=== PATIENT | female | born 1950 | race Caucasian/White ===

== ENCOUNTER → 2018-01-18 09:46 | Outpatient (POV) | payer MEDICARE, MEDICAID, SELFPAY | PROVIDERS: Family Provider Family Medicine; Visit Provider Physician Assistant | DX: Z00.00 Encounter for general adult medical examination without abnormal findings (principal) ==

== ENCOUNTER → 2019-09-01 10:08 | Outpatient (CLI) | payer MEDICARE, OTHER, SELFPAY ==
--- NOTE | 2019-09-01 10:21 | XR_ITS ---
PROCEDURE: XR KNEE LT 3V CLINICAL INDICATION: S/P FALL, KNEE PAIN Posttraumatic pain COMPARISON: No exams were available for comparison FINDINGS: No previous exams available for comparison. There has been a prior total knee replacement with good alignment. There is calcification along the dorsal aspect of the femoral prosthesis. This is of unknown chronicity as there are no old exams available for review. This projects over the intercondylar region on the AP view. No acute fracture or dislocation. IMPRESSION: Status post total knee replacement with good alignment with ossification along the femoral prosthesis at the intercondylar region posteriorly. No acute fracture Dictated by: Finesse Fisher MD 09/01/2019 16:45 Electronically signed by Finesse Fisher MD in [place] 09/01/2019 16:45
--- NOTE | 2019-09-01 10:21 | XR_ITS ---
PROCEDURE: XR HAND RT MIN 3V CLINICAL INDICATION: S/P FALL RT HAND PAIN COMPARISON: No exams were available for comparison FINDINGS: Osteoarthritic changes are present at the 1st interphalangeal joint, 1st metacarpal-carpal joint, PIP and DIP joints of digits 2 through 5 and at the metacarpophalangeal joint of digit 1 and 2. No acute fracture or dislocation is evident. Ring artifact noted at the 5th finger proximal phalanx. IMPRESSION: Osteoarthritic change, no acute finding Dictated by: Finesse Fisher MD 09/01/2019 16:43 Electronically signed by Finesse Fisher MD in [place] 09/01/2019 16:43
== END ==
PROVIDERS: PCP Family Medicine; Visit Provider Nurse Practitioner
DX: M79.641 Pain in right hand (principal); M25.562 Pain in left knee
CPT/HCPCS: 73130; 73562

== ENCOUNTER → 2020-12-18 07:37 | Outpatient (CLI) | payer MEDICARE, OTHER, SELFPAY ==
--- NOTE | 2020-12-18 07:50 | ECG_ITS ---
APPROVED REPORT Exam: Resting ECG HR:78 bpm ECG Measurements Heart Rate 78 AXES QRSd 90 QRS 80 QT 350 T -17 QTc 399 Conclusion Atrial fibrillation Nonspecific T wave abnormality -questionable electrolyte effect Abnormal ECG Electronically signed by : Zeeshan Sellers, 12/18/2020 17:09:24
== END ==
PROVIDERS: PCP Nurse Practitioner; Visit Provider Nurse Practitioner
DX: I49.9 Cardiac arrhythmia, unspecified (principal)
CPT/HCPCS: 93005

== ENCOUNTER → 2020-12-24 07:46 | Outpatient (CLI) | payer MEDICARE, OTHER, SELFPAY ==
--- NOTE | 2020-12-24 | CA_ITS ---
APPROVED REPORT EXAM: Comprehensive 2D, Doppler, and color-flow Echocardiogram Surgical Technology Instructor: Louise Simms RT(R) Ht: 5 ft 3 in Wt: 206lbs BSA: 1.96 BP: 120/70 mmHg Indications: Chest Pain, Murmur, Shortness of Breath, Atrial Fibrillation, Obesity, Hypertension/HDD 2D Dimensions LVOT 1.80 cm (M/F) 1.5-2.5 LVEF (Fried's) 55.60 % LV Volume 80.20 mL LA Volume 67.30 mL LA Volume Index 34.30 mL/m2 (M/F) 16-34 M-Mode Dimensions RVDd 2.57 cm (0.9-2.6) LA Diam 4.81 cm (1.9-4.0) LVDd 4.01 cm (3.5-5.7) Ao Diam 2.62 cm (2.0-3.7) LVDs 2.57 cm (3.5-5.7) IVSd 0.80 cm (0.6-1.1) PWd 0.92 cm (0.6-1.1) EF (Teich) 66.10% FS 35.90% EDV (Teich) 70.40 mL ESV (Teich) 23.90 mL Tricuspid Valve TR P. Velocity 268.00 cm/s RAP Estimate 15.00 mmHg RVSP 43.70 mmHg Left Ventricle Technically difficult study because of the patient factors and poor acoustic windows. Left atrium is mildly enlarged, left ventricle is normal size, mild concentric left ventricular hypertrophy, visually estimated ejection fraction 50% with no regional wall motion abnormality, diastolic parameters are inconclusive. Right Ventricle Right atrium and right ventricle are mildly enlarged with normal contractility. Aortic Valve Aortic valve is minimally thickened and calcified without aortic stenosis or aortic insufficiency. Mitral Valve Mitral valve leaflets are minimally thickened, there is mild mitral regurgitation. Tricuspid Valve Tricuspid valve grossly normal, there is mild tricuspid regurgitation, calculated right ventricular systolic pressure is 46 mmHg. Pulmonic Valve Pulmonic valve is poorly visualized. Great Vessels Aortic root is normal size. Inferior vena cava is normal size with normal inspiratory collapse. Pericardium No significant pericardial effusion noted. Conclusion 1. Technically difficult study because of the patient factors and poor acoustic windows. Biatrial enlargement, normal left ventricular size, mild concentric left ventricular hypertrophy, visually estimated ejection fraction 50% with no regional wall motion abnormality, diastolic parameters are inconclusive. 2. Mildly enlarged right ventricle with normal contractility. 3. Thickened and calcified aortic valve without aortic stenosis or aortic insufficiency. 4. Mild mitral and tricuspid regurgitation. Calculated right ventricular systolic pressure is 46 mmHg. 5. No significant pericardial effusion noted. Electronically signed by : Kashif Chavez, 12/25/2020 05:29:20
== END ==
PROVIDERS: PCP Family Medicine; Visit Provider Nurse Practitioner
DX: I48.91 Unspecified atrial fibrillation (principal); R07.89 Other chest pain; R06.09 Other forms of dyspnea
CPT/HCPCS: 93306

== ENCOUNTER → 2021-01-01 14:23 | Outpatient (CLI) | payer MEDICARE, OTHER, SELFPAY | PROVIDERS: Visit Provider Internal Medicine Cardiovascular Disease | DX: Z01.812 Encounter for preprocedural laboratory examination (principal); Z20.822 Contact with and (suspected) exposure to COVID-19; I48.0 Paroxysmal atrial fibrillation | CPT/HCPCS: U0003 ==

== ENCOUNTER 2021-01-03 12:49 | Day surgery (SDC) | payer MEDICARE, OTHER, SELFPAY ==
[2021-01-03] VITALS (7 sets, daily range): BP systolic 122–150; BP diastolic 63–92; PULSE 65–83; RESP 13–20; TEMP 36.4; O2SAT 64–100; BMI 79.0
--- NOTE | 2021-01-03 13:00 | CA_ITS ---
APPROVED REPORT EXAM: Comprehensive 2D, Doppler, and color-flow Echocardiogram [employer] Set Up Operator: Hayley Hebert CRT Ht: 5 ft 4 in Wt: 209lbs BSA: 1.99 BP: 113/80 mmHg Indications: a fib Procedure After obtaining informed consent, patient underwent transesophageal echo in the [employer]. Type of Sedation : Conscious Sedation Sedation was administered by Familia Xiao C.R.N.A. Transesophageal probe was inserted and advanced into esophagus without difficulty by Dr. Julio Cesar Samaniego. The IDALIA was performed without complications. Synchronized Cardioversion acheived with 200 Joules after 2 attempt(s). Throughout the procedure, the blood pressure, pulse oximetry, cardiac rhythm, and rate were monitored. The patient tolerated the procedure without adverse effects. Recovery from conscious sedation was uneventful and vital signs were stable. Left Ventricle Left ventricle is normal size, mild concentric left ventricular hypertrophy, visually estimated ejection fraction 55% in the obtained views. Right Ventricle Right ventricle is mildly enlarged with normal contractility. Atria Left atrium is moderately enlarged, left atrial appendage free of thrombus there is adequate appendage flow by spectral Doppler Right atrium is moderately enlarged Intra-atrial septum is intact, there is no flow across the interatrial septum, agitated saline contrast study fails 25 intracardiac shunt. Aortic Valve Aortic valve is minimally thickened and fibrosed there is no aortic stenosis or aortic insufficiency. Mitral Valve Mitral valve is grossly normal, there is mild mitral regurgitation. Tricuspid Valve Tricuspid valve is grossly normal, there is mild tricuspid regurgitation. Pulmonic Valve Pulmonic valve is grossly normal. Great Vessels Aortic root is normal size. Ascending, arch and descending thoracic aorta is not well visualized. Pericardium No significant pericardial effusion noted. Conclusion 1. Moderate biatrial enlargement, normal left ventricular size, mild concentric left ventricular hypertrophy, visually estimated ejection fraction 55% with no regional wall motion abnormality. 2. Mild mitral and tricuspid regurgitation. 3. No left atrial or left atrial appendage thrombus seen. 4. Agitated saline contrast study fails to identify intracardiac shunt. 5. Successful electrical DC cardioversion to restore sinus rhythm. Electronically signed by : Kashif Chavez, 01/03/2021 15:08:13
--- NOTE | 2021-01-03 13:27 | HMH.ANESCL ---
[facility] Anesthesia Checklist - Patient Identification Patient Identification: Arm Band - Structural Data Admitted From: Home Planned Operative Procedure/s: IDALIA with cardioversion Consent for Planned Operative Procedure(s) Verified: Yes - NPO Status Verified Time NPO: 00:00 - Airway Assessment C-Spine Mobility Assessed: Yes TMJ Mobility Assessed: Yes Dentition: Dentures-good fit - Neurological Assessment Level of Consciousness: Awake Hx Seizures: No Numbness or tingling in extremities: No - Anesthesia Plan Anesthesia Risk discussed: Yes Anesthesia Plan: Verified ASA Class: III Anesthesia Type: MAC [facility] History I have reviewed the patient's past medical history: Yes Medical History: Reports:: Atrial Fibrillation, Hypertension, Myocardial Infarction *Have you ever received a pneumonia vaccine?: No *Have you received a flu vaccine this season?: No Anesthesia experience/problems:: None Laterality Cases: Bilateral: Tonsillectomy Other Surgeries: Yes: Hysterectomy-Total - *Social History Smoking Status: Former smoker Alcohol Intake: never Substance Use Type: denies use *Occupational Status:: other *Travel in the last 8 weeks: None Family Hx:: Heart Attack, Cancer
== END 2021-01-03 14:59 | disposition home or self-care (01) ==
LOC: CATHLAB 12:50
PROVIDERS: PCP Family Medicine; Visit Provider Internal Medicine Cardiovascular Disease
DX: I34.0 Nonrheumatic mitral (valve) insufficiency (principal); I48.0 Paroxysmal atrial fibrillation; Z79.01 Long term (current) use of anticoagulants; Z88.0 Allergy status to penicillin; Z88.8 Allergy status to other drugs, medicaments and biological substances; Z79.899 Other long term (current) drug therapy; R94.31 Abnormal electrocardiogram [ECG] [EKG]
CPT/HCPCS: 92960; 93312

== ENCOUNTER → 2021-01-17 10:32 | Outpatient (CLI) | payer MEDICARE, OTHER, SELFPAY ==
[2021-01-17 10:58] LABS: Basophils % 0.3 % (0.1-2.0); Eosinophils # 0.1 K/mm3 (0.0-0.4); Hematocrit 42.1 % (37.0-47.0); Hemoglobin 13.4 g/dL (12.2-16.2); Lymphocytes # 1.6 K/mm3 (0.7-4.5); Mean Corpuscular HGB Conc 31.7 g/dL (31.8-35.4); Mean Corpuscular Hemoglobin 27.9 pg (27.0-31.2); Mean Corpuscular Volume 87.9 fl (81-99); Mean Platelet Volume 7.8 fl (7.4-10.4); Monocytes # 0.4 K/mm3 (0.1-1.0); Monocytes % 5.3 % (1.7-9.3); Neutrophils # 4.7 K/mm3 (1.8-7.8); Neutrophils % 68.4 % (37.0-80.0); Platelet Count 287 K/mm3 (142-424); Red Blood Count 4.79 M/mm3 (4.20-5.40); Red Cell Distribution Width 13.2 % (11.5-17.5); White Blood Count 6.9 K/mm3 (4.8-10.8)
[2021-01-17 11:30] LABS: Chloride 102 mmol/L (98-107); Sodium 139 mmol/L (136-145)
[2021-01-17 11:31] LABS: Potassium 3.9 mmoL/L (3.5-5.1)
[2021-01-17 11:34] LABS: Anion Gap 13.9 mEq/L (5-15); Blood Urea Nitrogen 24 mg/dl (7-17); Calcium 9.5 mg/dl (8.4-10.2); Carbon Dioxide 27 mmol/L (22.0-30.0); Estimated Glomerular Filt Rate 99 ml/min (>60); GFR (African American) 120 ML/MIN (>60); Glucose 102 mg/dl (74-100)
== END ==
PROVIDERS: Visit Provider Physician Assistant
DX: I10 Essential (primary) hypertension (principal); I34.0 Nonrheumatic mitral (valve) insufficiency; I48.91 Unspecified atrial fibrillation; R06.00 Dyspnea, unspecified; R07.89 Other chest pain; R40.0 Somnolence; R42 Dizziness and giddiness; R94.30 Abnormal result of cardiovascular function study, unspecified; R94.31 Abnormal electrocardiogram [ECG] [EKG]
CPT/HCPCS: 36415; 80048; 85025

== ENCOUNTER → 2021-08-16 09:58 | Outpatient (CLI) | payer MEDICARE, OTHER, SELFPAY ==
--- NOTE | 2021-08-16 10:04 | CA_ITS ---
FINAL REPORT TECHNIQUE: Color Doppler, duplex Doppler and demarco scale sonography of the bilateral neck arterial vasculature was performed. Velocities were measured in the carotid arteries. Stenosis evaluation based on the validated velocity criteria. CLINICAL HISTORY: .DIZZINESS,A-FIB,HTN FINDINGS: The peak systolic velocity of the right common carotid artery is 102 cm/s. The peak systolic velocity of the right internal carotid artery is 87 cm/s and end diastolic velocity 29 cm/s. No significant plaque is present. The right external carotid artery is patent. The right vertebral artery is patent with antegrade flow. The peak systolic velocity of the left common carotid artery is 89 cm/s. The peak systolic velocity of the left internal carotid artery is 85 cm/s and end diastolic velocity 32 cm/s. No significant plaque is present. The left external carotid artery is patent.The left vertebral artery is patent with antegrade flow. IMPRESSION: No evidence of carotid stenosis. Bilateral patent vertebral arteries with antegrade flow. If indicated, CTA or MRA could further evaluate. Reviewed, Interpreted and Dictated by Jerod Ybarra III, MD Transcribed by Lizabeth Dhillon Authenticated by Jerod Ybarra III, MD on 08/16/2021 12:00:24 PM [facility]
== END ==
PROVIDERS: PCP Family Medicine; Visit Provider Nurse Practitioner
DX: R42 Dizziness and giddiness (principal); M54.2 Cervicalgia; R07.9 Chest pain, unspecified; I48.91 Unspecified atrial fibrillation
CPT/HCPCS: 93880

== ENCOUNTER → 2022-02-21 06:31 | Outpatient (CLI) | payer MEDICARE, OTHER, SELFPAY ==
[2022-02-20 19:04] LABS: Basophils % 0.5 % (0.1-2.0); Eosinophils # 0.1 K/mm3 (0.0-0.4); Eosinophils % 1.8 % (0.1-12.0); Hematocrit 43.3 % (37.0-47.0); Lymphocytes # 1.7 K/mm3 (0.7-4.5); Mean Corpuscular HGB Conc 32.3 g/dL (31.8-35.4); Mean Corpuscular Hemoglobin 27.1 pg (27.0-31.2); Mean Corpuscular Volume 83.9 fl (81-99); Mean Platelet Volume 10.5 fl (7.4-10.4); Monocytes # 0.5 K/mm3 (0.1-1.0); Monocytes % 6.5 % (1.7-9.3); Neutrophils # 4.9 K/mm3 (1.8-7.8); Neutrophils % 68.2 % (37.0-80.0); Platelet Count 261 K/mm3 (142-424); Red Blood Count 5.16 M/mm3 (4.20-5.40); Red Cell Distribution Width 14.5 % (11.5-17.5); White Blood Count 7.2 K/mm3 (4.8-10.8)
[2022-02-20 19:18] LABS: Alanine Aminotransferase 46 U/L (12-78); Albumin Level 4.1 g/dl (3.5-5.0); Albumin/Globulin Ratio 1.7 (1.1-1.8); Alkaline Phosphatase 92 U/L (38-126); Anion Gap 11.2 mEq/L (5-15); Aspartate Amino Transferase 50 U/L (14-36); Bilirubin,Total 0.7 mg/dl (0.2-1.3); Blood Urea Nitrogen 20 mg/dl (7-17); Calcium 9.6 mg/dl (8.4-10.2); Carbon Dioxide 31 mmol/L (22.0-30.0); Chloride 100 mmol/L (98-107); Estimated Glomerular Filt Rate 99 ml/min (>60); GFR (African American) 120 ML/MIN (>60); Globulin 2.4 g/dL (1.3-3.2); Glucose 108 mg/dl (74-100); Potassium 4.2 mmoL/L (3.5-5.1); Sodium 138 mmol/L (136-145); Total Protein,Serum 6.5 g/dl (6.3-8.2)
[2022-02-20 19:28] LABS: NT Pro Brain Natriuretic Pep. 1570 pg/mL (0-125)
== END ==
PROVIDERS: PCP Nurse Practitioner; Visit Provider Nurse Practitioner
DX: R06.02 Shortness of breath (principal)
CPT/HCPCS: 80053; 83880; 85025

== ENCOUNTER → 2022-02-28 07:03 | Outpatient (CLI) | payer MEDICARE, OTHER, SELFPAY ==
--- NOTE | 2022-02-28 07:12 | CT_ITS ---
FINAL REPORT CLINICAL HISTORY: lung cancer screening, former smoker quit 8 years ago. smoked 1ppd x 50 years. poss copd, no family hx of lung cancer FINDINGS: Axial images were obtained from the lung apex to the mid abdomen by computed tomography. Low-dose protocol was utilized. CTDl vol(mGy): 2.90 DLP (mGy-cm): 92.99 FINDINGS: There is no axillary adenopathy. There is no hilar or mediastinal adenopathy. The heart size is enlarged. There is no pericardial or pleural effusion. Limited images of the upper abdomen demonstrate a hiatal hernia. There is possible mild hydronephrosis bilaterally. Lung window images demonstrate 2 nodules in the left upper lobe measuring 3 mm on image 65 and 4 mm on image 71. There is a left lower lobe nodule measuring 4 mm on image 79. The lungs are otherwise clear. There is a subcutaneous nodule in the left posterior chest wall measuring 15 mm favored to represent a sebaceous cyst.. IMPRESSION: Lung RADS category 2. Recommend 12 month follow-up low-dose chest CT. Category S: Cardiomegaly Possible bilateral hydronephrosis. Consider ultrasound for further evaluation. Reviewed, Interpreted and Dictated by Emily Selby MD Transcribed by Angela Whitaker Authenticated and [facility]
[2022-02-28 08:50] VITALS: PULSE 73; PULSE 75
== END ==
PROVIDERS: PCP Nurse Practitioner; Visit Provider Nurse Practitioner
DX: Z87.891 Personal history of nicotine dependence; Z12.2 Encounter for screening for malignant neoplasm of respiratory organs; R06.02 Shortness of breath
CPT/HCPCS: 71271; 94060; 94640; 94727; 94729

== ENCOUNTER → 2022-03-06 18:56 | Outpatient (CLI) | payer MEDICARE, OTHER, SELFPAY ==
[2022-03-06 19:43] LABS: Anion Gap 10.7 mEq/L (5-15); Blood Urea Nitrogen 24 mg/dl (7-17); Calcium 9.7 mg/dl (8.4-10.2); Carbon Dioxide 30 mmol/L (22.0-30.0); Chloride 101 mmol/L (98-107); Estimated Glomerular Filt Rate 99 ml/min (>60); GFR (African American) 120 ML/MIN (>60); Glucose 101 mg/dl (74-100); Potassium 3.7 mmoL/L (3.5-5.1); Sodium 138 mmol/L (136-145)
[2022-03-06 19:52] LABS: NT Pro Brain Natriuretic Pep. 1130 pg/mL (0-125)
== END ==
PROVIDERS: PCP Nurse Practitioner; Visit Provider Nurse Practitioner
DX: R06.02 Shortness of breath (principal); R60.0 Localized edema; I50.9 Heart failure, unspecified
CPT/HCPCS: 80048; 83880

== ENCOUNTER → 2022-04-01 07:24 | Outpatient (CLI) | payer MEDICARE, OTHER, SELFPAY | PROVIDERS: PCP Nurse Practitioner; Visit Provider Nurse Practitioner | DX: R30.0 Dysuria (principal) | CPT/HCPCS: 87086 ==

== ENCOUNTER → 2022-06-24 15:15 | Outpatient (CLI) | payer MEDICARE, OTHER, SELFPAY ==
[2022-06-24 18:21] LABS: Adenovirus,PCR Not Detected (NotDetected); Bordetella Pertussis Not Detected (NotDetected); Chlamydophila Pneumoniae, PCR Not Detected (NotDetected); Coronavirus 229E Not Detected (NotDetected); Coronavirus NL63 Not Detected (NotDetected); Coronavirus OC43 Not Detected (NotDetected); Coronovirus HKU1,PCR Not Detected (NotDetected); Human Metapneumovirus Not Detected (NotDetected); Influenza A, PCR Not Detected (NotDetected); Influenza AH1, 2009 Not Detected (NotDetected); Influenza AH1, PCR Not Detected (NotDetected); Influenza AH3,PCR Not Detected (NotDetected); Influenza B, PCR Not Detected (NotDetected); Mycoplasma Pneumoniae, PCR Not Detected (NotDetected); Parainfluenza 1, PCR Not Detected (NotDetected); Parainfluenza 2, PCR Not Detected (NotDetected); Parainfluenza 3, PCR Not Detected (NotDetected); Parainfluenza 4, PCR Not Detected (NotDetected); Respiratory Syncytial Virus Not Detected (NotDetected); Rhinovirus/Enterovirus Not Detected (NotDetected)
[2022-06-24 18:46] LABS: Basophils # 0.1 K/mm3 (0-0.2); Basophils % 0.7 % (0.1-2.0); Eosinophils # 0.3 K/mm3 (0.0-0.4); Eosinophils % 3.7 % (0.1-12.0); Hematocrit 44.7 % (37.0-47.0); Hemoglobin 14.3 g/dL (12.2-16.2); Lymphocytes # 0.8 K/mm3 (0.7-4.5); Lymphocytes % 9.5 % (10-50); Mean Corpuscular HGB Conc 31.9 g/dL (31.8-35.4); Mean Platelet Volume 9.5 fl (7.4-10.4); Monocytes # 0.4 K/mm3 (0.1-1.0); Monocytes % 5.3 % (1.7-9.3); Neutrophils # 6.5 K/mm3 (1.8-7.8); Neutrophils % 80.8 % (37.0-80.0); Platelet Count 329 K/mm3 (142-424); Red Blood Count 5.08 M/mm3 (4.20-5.40); White Blood Count 8.1 K/mm3 (4.8-10.8)
[2022-06-25 02:37] LABS: Coronavirus 19, PCR Detected (NotDetected)
== END ==
PROVIDERS: PCP Nurse Practitioner; Visit Provider Nurse Practitioner
DX: J06.9 Acute upper respiratory infection, unspecified (principal); J32.9 Chronic sinusitis, unspecified; U07.1 COVID-19
CPT/HCPCS: 85025; 87581; 87632; 87798; C9803; U0003; U0005

== ENCOUNTER → 2022-07-23 14:05 | Outpatient (CLI) | payer MEDICARE, OTHER, SELFPAY ==
--- NOTE | 2022-07-23 14:08 | CA_ITS ---
FINAL REPORT TECHNIQUE: Color Doppler, duplex Doppler and compression sonography of the right lower extremity venous system was performed. CLINICAL HISTORY: right calf pain and bruising FINDINGS: There is no evidence of deep venous thrombosis from the level of the groin to the calf. The veins are patent and compressible. IMPRESSION: No evidence of deep venous thrombosis right lower extremity. Reviewed, Interpreted and Dictated by Jerod Ybarra III, MD Transcribed by Lizabeth Dhillon Authenticated and [facility]
== END ==
PROVIDERS: PCP Nurse Practitioner; Visit Provider Nurse Practitioner
DX: M79.661 Pain in right lower leg (principal)
CPT/HCPCS: 93971

== ENCOUNTER → 2023-03-23 23:59 | Outpatient (CLI) | payer MEDICARE, OTHER, SELFPAY | PROVIDERS: PCP Nurse Practitioner; Visit Provider Nurse Practitioner | DX: L08.9 Local infection of the skin and subcutaneous tissue, unspecified (principal); L72.3 Sebaceous cyst | CPT/HCPCS: 87070; 87205 ==

== ENCOUNTER 2023-10-22 19:03 | Outpatient (CLI) | payer MEDICARE, SELFPAY ==
[2023-10-22 18:34] LABS: Basophils # 0.1 K/mm3 (0-0.2); Basophils % 1.5 % (0.1-2.0); Eosinophils # 0.1 K/mm3 (0.0-0.4); Eosinophils % 1.3 % (0.1-12.0); Hematocrit 46.4 % (37.0-47.0); Hemoglobin 14.8 g/dL (12.2-16.2); Lymphocytes # 1.4 K/mm3 (0.7-4.5); Lymphocytes % 21.8 % (10-50); Mean Corpuscular HGB Conc 31.9 g/dL (31.8-35.4); Mean Corpuscular Hemoglobin 29.3 pg (27.0-31.2); Mean Corpuscular Volume 91.8 fl (81-99); Mean Platelet Volume 11.7 fl (7.4-10.4); Monocytes # 0.4 K/mm3 (0.1-1.0); Monocytes % 6.3 % (1.7-9.3); Neutrophils # 4.4 K/mm3 (1.8-7.8); Platelet Count 265 K/mm3 (142-424); Red Blood Count 5.05 M/mm3 (4.20-5.40); Red Cell Distribution Width 13.8 % (11.5-17.5); White Blood Count 6.4 K/mm3 (4.8-10.8)
[2023-10-22 19:17] LABS: Alanine Aminotransferase 39 U/L (12-78); Albumin Level 4.4 g/dl (3.5-5.0); Albumin/Globulin Ratio 1.9 (1.1-1.8); Alkaline Phosphatase 89 U/L (38-126); Anion Gap 11.5 mEq/L (5-15); Aspartate Amino Transferase 41 U/L (14-36); Bilirubin,Total 0.7 mg/dl (0.2-1.3); Blood Urea Nitrogen 26 mg/dl (7-17); Calcium 9.9 mg/dl (8.4-10.2); Carbon Dioxide 32 mmol/L (22.0-30.0); Chloride 100 mmol/L (98-107); Chol/HDL Ratio 5.2 (1-3.5); Cholesterol 201 mg/dl (140-200); Estimated Glomerular Filt Rate 83 ml/min (>60); GFR (African American) 100 ML/MIN (>60); Globulin 2.3 g/dL (1.3-3.2); Glucose 116 mg/dl (74-100); HDL Cholesterol 39 mg/dl (40-60); Potassium 4.5 mmoL/L (3.5-5.1); Sodium 139 mmol/L (136-145); Total Protein,Serum 6.7 g/dl (6.3-8.2); Triglycerides 123 mg/dl (30-150); VLDL Cholesterol 25 mg/dL (0-40)
[2023-10-22 19:28] LABS: Direct LDL Cholesterol 105.94 mg/dL (100-129)
[2023-10-22 19:47] LABS: Hemoglobin A1C 6.1 % (4.0-6.0)
[2023-10-22 19:49] LABS: Thyroid Stimulating Hormone 0.74 uIU/mL (0.465-4.68)
[2023-10-22 20:21] LABS: Vitamin B12 > 1000 pg/mL (239-931)
== END 2023-10-22 23:59 ==
LOC: LAB.DROPOF 19:03
PROVIDERS: PCP Nurse Practitioner; Visit Provider Nurse Practitioner
DX: I10 Essential (primary) hypertension (principal); R73.01 Impaired fasting glucose; E78.5 Hyperlipidemia, unspecified; M79.602 Pain in left arm
CPT/HCPCS: 80053; 80061; 82607; 83036; 84443; 85025

== ENCOUNTER 2024-08-15 14:45 | Outpatient (CLI) | payer MEDICARE, SELFPAY ==
[2024-08-15 18:38] LABS: Human Rhinovirus Not Detected (NotDetected); Influenza A, PCR Not Detected (NotDetected); Influenza B, PCR Not Detected (NotDetected); Respiratory Syncytial Virus Not Detected (NotDetected)
[2024-08-15 21:36] LABS: Coronavirus 19, PCR Detected (NotDetected)
== END 2024-08-15 23:59 | disposition home or self-care (01) ==
LOC: LAB.DROPOF 08-17 08:41
PROVIDERS: PCP Nurse Practitioner; Visit Provider Nurse Practitioner
DX: J06.9 Acute upper respiratory infection, unspecified (principal)
CPT/HCPCS: 87631

== ENCOUNTER 2024-10-24 08:35 | Outpatient (CLI) | payer MEDICARE, SELFPAY ==
[2024-10-25 09:34] LABS: Basophils # 0.1 K/mm3 (0-0.2); Basophils % 0.8 % (0.1-2.0); Eosinophils # 0.1 K/mm3 (0.0-0.4); Eosinophils % 1.8 % (0.1-12.0); Hematocrit 45.1 % (37.0-47.0); Hemoglobin 13.9 g/dL (12.2-16.2); Lymphocytes # 1.6 K/mm3 (0.7-4.5); Lymphocytes % 23.9 % (10-50); Mean Corpuscular HGB Conc 30.8 g/dL (31.8-35.4); Mean Corpuscular Hemoglobin 28.4 pg (27.0-31.2); Mean Platelet Volume 11.5 fl (7.4-10.4); Monocytes # 0.7 K/mm3 (0.1-1.0); Neutrophils # 4.2 K/mm3 (1.8-7.8); Neutrophils % 63.2 % (37.0-80.0); Platelet Count 275 K/mm3 (142-424); Red Cell Distribution Width 14.6 % (11.5-17.5); White Blood Count 6.6 K/mm3 (4.8-10.8)
[2024-10-25 10:00] LABS: Creatinine,Urine Random 176 mg/dL (Not Estab.)
[2024-10-25 10:03] LABS: Microalbumin/Creatinine Ratio 34.1
[2024-10-25 10:05] LABS: Albumin Level 4.5 g/dl (3.5-5.0); Chloride 100 mmol/L (98-107); Sodium 137 mmol/L (136-145)
[2024-10-25 10:06] LABS: Potassium 4.3 mmoL/L (3.5-5.1)
[2024-10-25 10:08] LABS: Alanine Aminotransferase 27 U/L (12-78); Albumin/Globulin Ratio 2.5 (1.1-1.8); Alkaline Phosphatase 83 U/L (38-126); Anion Gap 9.3 mEq/L (5-15); Aspartate Amino Transferase 28 U/L (14-36); Bilirubin,Total 0.8 mg/dl (0.2-1.3); Blood Urea Nitrogen 25 mg/dl (7-17); Carbon Dioxide 32 mmol/L (22.0-30.0); Cholesterol 164 mg/dl (140-200); Estimated Glomerular Filt Rate 99 ml/min (>60); GFR (African American) 119 ML/MIN (>60); Globulin 1.8 g/dL (1.3-3.2); Total Protein,Serum 6.3 g/dl (6.3-8.2); Triglycerides 134 mg/dl (30-150); VLDL Cholesterol 27 mg/dL (0-40)
[2024-10-25 10:09] LABS: Calcium 9.9 mg/dl (8.4-10.2); Chol/HDL Ratio 3.7 (1-3.5); Glucose 105 mg/dl (74-100); HDL Cholesterol 44 mg/dl (40-60)
[2024-10-25 10:20] LABS: Direct LDL Cholesterol 87.12 mg/dL (100-129)
[2024-10-25 10:30] LABS: Hemoglobin A1C 5.6 % (4.0-6.0)
[2024-10-25 10:39] LABS: Thyroid Stimulating Hormone 1.34 uIU/mL (0.465-4.68)
[2024-10-25 11:23] LABS: Vitamin B12 452 pg/mL (239-931)
== END 2024-10-24 23:59 | disposition home or self-care (01) ==
LOC: LAB.DROPOF 10-25 12:38
PROVIDERS: PCP Nurse Practitioner; Visit Provider Nurse Practitioner
DX: I10 Essential (primary) hypertension (principal); I48.91 Unspecified atrial fibrillation; E78.5 Hyperlipidemia, unspecified; R73.01 Impaired fasting glucose
CPT/HCPCS: 80053; 80061; 82043; 82570; 82607; 83036; 84443; 85025

== ENCOUNTER 2025-01-31 12:54 | Outpatient (CLI) | payer MEDICARE, SELFPAY ==
[2025-01-31 19:01] LABS: Alanine Aminotransferase 26 U/L (12-78); Albumin Level 4.3 g/dl (3.5-5.0); Albumin/Globulin Ratio 2.3 (1.1-1.8); Alkaline Phosphatase 85 U/L (38-126); Anion Gap 11.9 mEq/L (5-15); Aspartate Amino Transferase 30 U/L (14-36); Bilirubin,Total 0.6 mg/dl (0.2-1.3); Blood Urea Nitrogen 29 mg/dl (7-17); Calcium 8.6 mg/dl (8.4-10.2); Carbon Dioxide 27 mmol/L (22.0-30.0); Chloride 103 mmol/L (98-107); Creatinine,Serum 0.70 mg/dl (0.52-1.04); Estimated Glomerular Filt Rate 82 ml/min (>60); GFR (African American) 100 ML/MIN (>60); Globulin 1.9 g/dL (1.3-3.2); Glucose 89 mg/dl (74-100); Potassium 3.9 mmoL/L (3.5-5.1); Sodium 138 mmol/L (136-145); Total Protein,Serum 6.2 g/dl (6.3-8.2)
[2025-01-31 19:54] LABS: Hemoglobin A1C 7.3 % (4.0-6.0)
--- OUTSIDE RECORDS SUMMARY | 2025-02-02 13:02 | XMS_ITS | Clinical Summary ---
Author Organization [facility] Address [address] [place] [address] Phone Care Team Providers Care Chief Optometry Service Name Role Phone Camille Pinon Primary Care Provider [phone] Allergies Active Allergy Reactions Criticality Noted Date Comments Cephalexin Shortness Of Breath,Swelling High 022 Oxycodone Other (See Comments) Low 04/25/2024 Confusion Penicillins Hives Medium 04/25/2024 Sulfamethoxazole Diarrhea Low 04/25/2024 Trimethoprim Diarrhea Medium Medications potassium chloride 20 mEq Oral Tablet Sustained Release TAEK 1 TABLET BY MOUTH ONCE DAILY 1 Active metoprolol succinate (TOPROL-XL) 25 mg Oral Tablet Sustained Release 24 hr Take 50 mg by mouth daily. 1 Active meloxicam (MOBIC) 15 mg Oral Tablet Take 7.5 mg by mouth daily. 1 Active fUROsemide (LASIX) 20 mg Oral Tablet Take 40 mg by mouth daily. 1 Active benazepril-hydro chlorthiazide (LOTENSIN HCT) 20-25 mg Oral Tablet Take 1 Tablet by mouth daily. 1 Active Btxuc-8-TLT-EPA- Fish Oil 1,000 mg (120 mg-180 mg) Oral Capsule Take by mouth. Active ascorbic acid, vitamin C, (VITAMIN C) 1,000 mg Oral Tablet Take 1,000 mg by mouth daily. Active rivaroxaban (XARELTO) 20 mg Oral TabletIndication s:Persistent atrial fibrillation (HCC) Take 1 Tablet by mouth daily. 90 Tablet 1 1 Active benazepriL (LOTENSIN) 10 mg Oral Tablet Take 10 mg by mouth daily. 2 Active hydroCHLOROthiaz lovely (HYDRODIURIL) 25 mg Oral Tablet Take 25 mg by mouth daily. 2 Active albuterol (PROVENTIL HFA;VENTOLIN HFA) 90 mcg/actuation Inhl HFA Aerosol Inhaler INHALE 2 PUFFS INTO THE LUNGS EVERY 6 HOURS NEEDED FOR SHORTNESS OF BREATH OR WHEEZING. 2 Active predniSONE (DELTASONE) 10 mg Oral TabletIndication s:Cervical spondylosis 20 mg x 3 days, 10 mg x 3 days, 5 mg x 3 days 11 Tablet 4 Active Additional Information Patient not taking.Reason: Therapy Completed, Reported on 10/19/2024 dapagliflozin propanediol (FARXIGA) 10 mg Oral TabletIndication s:heart failure associated with type 2 diabetes mellitus Take 10 mg by mouth daily. Indications: heart failure associated with type 2 diabetes mellitus Active methylPREDNISolo ne (MEDROL DOSPACK) 4 mg Oral Tablets, Dose PackIndications: Left hand pain,Injury of left ulnar nerve at hand level, initial encounter Follow package directions 21 Tablet 4 Active Additional Information Patient not taking.Reason: Therapy Completed, Reported on 10/19/2024 Active Problems Problem Noted Date Diagnosed Date Cubital tunnel syndrome on left 09/27/2024 Abnormal EKG 02/17/2024 Candidal vulvovaginitis 02/17/2024 Chest pain 02/17/2024 Daytime somnolence 02/17/2024 Dizziness 02/17/2024 Dyspnea 02/17/2024 Elevated right ventricular end-diastolic pressur e 02/17/2024 Fatigue 02/17/2024 Right low back pain 02/17/2024 Carpal tunnel syndrome of left wrist 12/04/2023 Incisional hernia with obstruction but no gangre ne 12/18/2021 Overview (12/18/2021): Added automatically from request for surgery [id number] Pacemaker 11/14/2021 Overview (02/16/2024): Medtronic Single Chamber PPM implanted 11/14/[address] 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 Muller Atrial fibrillation HTN (hypertension) Mild mitral regurgitation Encounters Date Type Department Care Team Description 11/23/2024 12:45 PM EDT Office Visit [facility] [address] [id number] Edilberto Mott MD Cubital tunnel syndrome on left (Primary Dx) 11/14/2024 Orders Only [facility] [address] [facility] [address] [place] [id number] Karina Muller MD Vector Remote Device 11/10/2024 9:31 AM EDT Anesthesia Event Orthopaedic Surgery [address] [address] Rodger Mckeon MD Adkins, Braxton, MD 11/10/2024 9:30 AM EDT - 11/10/2024 9:53 AM EDT [facility] [address] [place] [address] Edilberto Mott MD CUBITAL TUNNEL RELEASE / NERVE TRANSPOSITION / DECOMPRESSION 11/10/2024 9:30 AM EDT - 11/10/2024 11:59 PM EDT Hospital Encounter Orthopaedic Surgery [address] [address] Edilberto Mott MD Discharge Disposition: Home or Self Care 11/09/2024 Telephone [facility] [address] [place] [address] Edilberto Mott MD Other from Last 3 Months Surgical History Surgery Date Site/Laterality Comments CATARACT EXTRACTION EXTRACAPSULAR W/ INTRAOCULAR LENS IMPLANTATION 08/09/[address] Henrik Edmonds CATARACT EXTRACTION EXTRACAPSULAR W/ INTRAOCULAR LENS IMPLANTATION 08/23/[address] Leidy Edmonds PACEMAKER INSERTION 11/14/2021 Medtronic single chamber PPM by Dr. Muller PACEMAKER IMPLANT 11/14/2021 N/A LEADLESS PACEMAKER IMPLANT-CUT ORDER HAND ONLY [46]; Surgeon: Karina Muller MD; Location: ED CARDIAC CUT ORDER HAND IMAGING; Service: Cardiac Medical devices from this surgery are in the Medical Devices section. EYE SURGERY KNEE SURGERY Bilateral TKR CHOLECYSTECTOMY HYSTERECTOMY EAR SURGERY Right cochlear implant TONSILLECTOMY VENTRAL HERNIA REPAIR 2021 N/A Robotic incisional hernia repair ; Surgeon: Radha Pepe MD; Location: [facility]; Service: Robotics CARPAL TUNNEL RELEASE 12/23/2023 Hand/Wrist/Left Left Endoscopic Carpal Tunnel Release; Surgeon: Leandro Taylor MD; Location: [facility]; Service: Orthopedics ULNAR TUNNEL RELEASE 11/10/2024 Arm/Elbow/Left LEFT CUBITAL TUNNEL RELEASE; Surgeon: Edilberto Mott MD; Location: [facility]; Service: Orthopedics Medical History Medical History Date Comments Atrial fibrillation (HCC) HTN (hypertension) Mild mitral regurgitation 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 Taylor o + single chamber pacemaker Pacemaker Cardiac dysrhythmia Xarelto, PPM Arthritis Shortness of breath Not every da y Pre-diabetes Anesthesia Pt states she sal d diarrhea x 1 after anesthesia PONV (postoperative nausea a nd vomiting) after cochlear implant Family History Medical History Relation Name Comments Anesth Problems Neg Hx Social History Tobacco Use Types Packs/Day Years Used Date Smoking Tobacco: Former Cigarettes 1 47 0 08/03/1966 - 08/03/2013 Smokeless Tobacco: Never Tobacco Cessation:Counseling Given: Not Answered Alcohol Use Standard Drinks/Week Comments Not Currently 0 (1 standard drink = 0.6 oz pur e alcohol) Comments No Sex and Gender Information Value Date Recorded Sex Assigned at Not on file Legal Sex Female 6:26 AM EDT Gender Identity Not on file Sexual Orientation Not on file Obstetrics History Last Filed Vital Signs Vital Sign Reading Time Taken Comments Blood Pressure 174/73 11/10/2024 10:30 AM EDT Pulse 71 11/10/2024 10:30 AM EDT Temperature 36.3 C (97.3 F) 11/10/2024 10:40 AM EDT Respiratory Rate 18 11/10/2024 10:30 AM EDT Oxygen Saturation 95% 11/10/2024 10:30 AM EDT Inhaled Oxygen Concentration - - Weight 87.6 kg (193 lb 1.6 oz) 11/10/2024 8:17 A M EDT Height 162.6 cm (5' 4 ) 11/10/2024 8:17 AM EDT Body Mass Index 33.15 11/10/2024 8:17 AM EDT Plan of Treatment Upcoming Encounters Date Type Department Care Team (Late st Contact Info) Description 02/27/2025 11:00 AM EDT Office Visit [facility] [address] [facility] [address] [place] [address] 02/27/2025 11:30 AM EDT Office Visit [facility] [address] [facility] [address] [place] [address] Parris Stark, NETO [address] [place] [address] Health Maintenance Due Date Last Done Comments Wellness Exam Medicare 12/25/1953 Hepatitis C Screening 1970 Pneumococcal Vaccine 50+ (1 of 2 - PCV) 12/25/1971 Breast Cancer Screening 1992 Cologuard 1997 Colon Cancer Screening 1997 Colonoscopy 1997 FIT 1997 Sigmoidoscopy 1997 Virtual Colonography 1997 Zoster (1 of 2) 2002 RSV or 60+ (1 - Ris k 60-74 years 1-dose series) 2012 Bone Density Screening 2017 DTaP/TDaP/Td (2 - Td or Tdap) 01/24/2024 01/23/2014 COVID-19 Vaccine (2023-2 5 season) 2024 08/13/2021, 10/23/2020, 09/25/2020 Low Dose Lung Cancer Screening 02/23/2025 0 02/24/2024, 02/17/2023 Influenza Vaccine (#1) 2025 Hepatitis B Vaccine Aged Out No longe r eligible based on patient's age to complete this topic Meningococcal B Vaccine Aged Out No l onger eligible based on patient's age to complete this topic Medical Devices Implanted Type Area Loan Expeditor Device Identifier Shelf Expiration Date Model / Serial / Lot Lead Pcng [id number] Spc 52cm Cap Nov Surscn Impl Biplr Str Av - [id number] Implanted:Qty: 1 on 11/14/2021 by Karina Muller MD at [facility] Lead MEDTR[employer]IC:JACIEL Escobar SYS [id number] 07/25/2023 [id number] / [id number] / Pacemaker Cris Xt Sr Mri Surscn Sgl-Chmbr 42.6x50.8x7.4mm - [id number] Implanted:Qty: 1 on 11/14/2021 by Karina Muller MD at [facility] Pacemaker MEDTRONIC:JACIEL Escobar SYS [id number] 12/28/2022 [id number] / [id number] / Cochlear Implant Right Ear Bilateral Knee Replacements Bilateral Intraocular Lenses Procedures Procedure Name Priority Date/Time Associated Diagnosis Comments WA REM INTERROG PM/LDLS PM <90 D PHYS/QHP Routine 11/14/2024 12:00 AM EDT Vector Remote Device INTRAOP AIRWAY PLACEMENT Routine 11/10/2024 9:37 AM EDT WA NEUROPLASTY &/TRANSPOSITION ULNAR NERVE ELBOW 11/10/2024 9:30 AM EDT Cubital tunnel syndrome on left Special Needs [facility] CT LUNG CANCER SCREENING LOW DOSE Routine 02/24/2024 2:45 PM EDT Nicotine dependence, cigarettes, in remission from Last 3 Months or Most Recently Relevant to Health Maintenance Results * VECTOR REMOTE DEVICE (11/14/2024 12:00 AM EDT) 11/14/2024 Narrative [facility] - 11/14/2024 12:00 AM EDT No episodes. Patient on AC. Mode: VVIR. DITCH RIDER: 100%. Normal device function. us Karina Muller MD [facility] CARDIAC CATH ORDERABLES F inal Result [facility] [address] [place] [address] * INTRAOP AIRWAY PLACEMENT (11/10/2024 9:37 AM EDT) Narrative [facility] - 11/10/2024 9:37 AM EDT Michael Fernando CRNA 11/10/2024 9:43 AM Intraop Airway Placement: Date/Time: 11/10/2024 9:37 AM Induction type: IV Mask size: Standard adult Pre-Oxygenation: Standard Airway type: LMA Topical Anesthetic/Lubricant: Lubricant jelly Airway location: Oral Device size: 4 Placement verified: End tidal CO2 and Symmetric chest wall motion Condition: Atraumatic and Unchanged Insertion attempts: 1 Attempt 1 by: Jil Title: VICE PRESIDENT INVESTOR RELATIONS us Rodger Mckeon MD WA ANESTHESIA Final Res ult [facility] [address] [place] [address] * CT LUNG CANCER SCREENING LOW DOSE (02/24/2024 2:45 PM EDT) Anatomical Region Laterality Modality Lung Computed Tomogra phy 02/24/2024 2:45 PM EDT Impressions 02/24/2024 3:03 PM EDT Unremarkable low-dose screening chest CT. RECOMMENDATION: Low Dose CT - 1 Yr A summary letter communicating these results will be mailed to the patient's address of record. - Note: Radiology results need to be interpreted within a comprehensive clinical context. If you have questions about the radiology report, please contact the office of the ordering clinician. [email or web address] Narrative 02/24/2024 3:[address] LUNG CANCER SCREENING LOW DOSE 02/24/2024 2:45 PM CLINICAL HISTORY: Asymptomatic patient meeting NCCN high risk criteria for lung screening. F17.211-Nicotine dependence, cigarettes, in [id number]. COMPARISON: 02/17/2023 PROCEDURE COMMENTS: Noncontrast, low-dose, multidetector CT chest per department protocol. Interactive 3-D postprocessing done by the reviewing physician on a [employer] workstation, using Maximum intensity projections (MIPS) and MtoVO LUNG CAD for improved lesion detection. Moreno images archived to PACS. Dose 1 : CT DLP Total : 63.5 mGycm DLP Spiral Max : 63.5 mGycm Maximum CTDI Vol : 1.7 mGy SSDE : 2.108 mGy SSDE Diameter : 29.8 cm SSDE Source : [employer] FINDINGS: No suspicious pulmonary nodule. 3 mm subpleural micronodule superior segment left lower lobe (axial 78) and 4 mm posterior left upper lobe subpleural nodule (axial 63) both remain stable. No new or enlarging nodules. Evidence of old healed granulomatous disease. No acute inflammatory process. Heart and mediastinum unremarkable. Moderate-sized hiatal hernia. Coronary artery calcification: Moderate. FOLLOW-UP CODE: Lung-RADS Category 2: Benign Appearance or Behavior. Nodules with a very low likelihood of becoming active cancer due to size or lack of growth. Lung-RADS Modifier N/A: No Modifier Needed Procedure Note Javier Sanchez MD - 02/24/2024 CT LUNG CANCER SCREENING LOW DOSE 02/24/2024 2:45 PM CLINICAL HISTORY: Asymptomatic patient meeting NCCN high risk criteria forlung screening. F17.211-Nicotine dependence, cigarettes, [id number]-CM. COMPARISON: 02/17/2023 PROCEDURE COMMENTS: Noncontrast, low-dose, multidetector CT chest perdepartment protocol. Interactive 3-D postprocessing done by the reviewing physicianon a [employer] workstation, using Maximum intensity projections (MIPS) and SYNGTargeted GrowthUNG CAD for improved lesion detection. Moreno images archived to PACS. Dose 1 : CT DLP Total : 63.5 mGycm DLP Spiral Max : 63.5 mGycm Maximum CTDI Vol : 1.7 mGy SSDE : 2.108 mGy SSDE Diameter : 29.8 cm SSDE Source : [employer] FINDINGS: No suspicious pulmonary nodule. 3 mm subpleural micronodulesuperior segment left lower lobe (axial 78) and 4 mm posterior left upper lobesubpleural nodule (axial 63) both remain stable. No new or enlarging nodules.Evidence of old healed granulomatous disease. No acute inflammatory process. Heartand mediastinum unremarkable. Moderate-sized hiatal hernia. Coronary artery calcification: Moderate. FOLLOW-UP CODE: Lung-RADS Category 2: Benign Appearance or Behavior.Nodules with a very low likelihood of becoming active cancer due to size or lackof growth. Lung-RADS Modifier N/A: No Modifier Needed IMPRESSION: Unremarkable low-dose screening chest CT. RECOMMENDATION: Low Dose CT - 1 Yr A summary letter communicating these results will be mailed to thepatient's address of record. - Note: Radiology results need to be interpreted within a comprehensiveclinical context. If you have questions about the radiology report, please contactthe office of the ordering clinician. [email or web address] Trevor Valle MD IMG CT ORDERABLES Final Resul t from Last 3 Months or Most Recently Relevant to Health Maintenance Insurance MEDICARE ADVANTAGE MR MEDICARE ADVANTAGE MR ANTHEM MEDICARE ADVANTAGE MR ANTHEM MEDICARE ADVANTAGE MR Care Teams Chief Optometry Service Relationship Specialty Start Date End Date Camille Pinon [address] [place] [address] PCP - General Family Medicine 08/03/1979
--- OUTSIDE RECORDS SUMMARY | 2025-02-02 13:02 | XMS_ITS | Clinical Summary ---
Author Organization [facility] Address [address] [place] [address] Care Team Providers Care Slasher Sawyer Name Role Phone Turner Pinon MD Primary Care Provider [phone] Allergies Active Allergy Reactions Criticality Noted Date Comments Cephalexin Shortness of breath,Swelling High 022 Oxycodone Other - please docum ent in the comment field Low 04/25/2024 Confusion Penicillins Hives Medium 04/25/2024 Sulfamethoxazole Diarrhea Low 04/25/2024 Medications Xarelto 20 MG tablet Take 1 tablet (20 mg) by mouth 1 (one) time each day. 04/14/2024 Active potassium chloride CR (Klor-Con) 10 MEQ ER tablet Take 2 tablets (20 mEq) by mouth 1 (one) time each day. 02/11/2024 Active meloxicam (Mobic) 7.5 MG tablet Take 1 tablet (7.5 mg) by mouth 1 (one) time each day. 07/14/2023 Active metoprolol succinate XL (Toprol-XL) 50 MG 24 hr tablet Take 1 tablet (50 mg) by mouth 1 (one) time each day. 02/11/2024 Active omega-3 1000 MG capsule Take by mouth. Active Farxiga 10 MG tablet Take 1 tablet (10 mg) by mouth 1 (one) time each day. Active furosemide (Lasix) 40 MG tablet Take 1.5 tablets (60 mg) by mouth 1 (one) time each day. 03/31/2024 Active hydroCHLOROthia zide (HYDRODiuril) 25 MG tablet Take 1 tablet (25 mg) by mouth 1 (one) time each day. 04/14/2024 Active methylPREDNISol one (Medrol Dospak) 4 MG tablets TAKE 6 TABLETS ON DAY 1,THEN 5 TABS ON DAY 2,THEN 4 TABS ON DAY 3, 3 TABS ON DAY 4,THEN 2 TABS ON DAY 5 AND 1 TAB ON DAY 6. *TAKE WITH FOOD* 01/11/2024 Active benazepril (Lotensin) 10 MG tablet Take 1 tablet (10 mg) by mouth 1 (one) time each day. 03/10/2024 Active Active Problems No known active problems Social History Tobacco Use Types Packs/Day Years Used Date Smoking Tobacco: Former Cigarettes Smokeless Tobacco: Never Comments Unknown Sex and Gender Information Value Date Recorded Sex Assigned at Not on file Legal Sex Female 6:31 PM EDT Gender Identity Not on file Sexual Orientation Not on file Last Filed Vital Signs Vital Sign Reading Time Taken Comments Blood Pressure 129/80 04/25/2024 12:14 PM EDT Pulse 78 04/25/2024 12:14 PM EDT Temperature - - Respiratory Rate - - Oxygen Saturation - - Inhaled Oxygen Concentration - - Weight - - Height 160 cm (5' 3 ) 04/25/2024 12:14 PM EDT Body Mass Index - - Plan of Treatment Health Maintenance Due Date Last Done Comments [facility]-Bone Density Scan 1950 [facility]-Depression Screening 1950 [facility]-Hepatitis C Screening 1950 [facility]-Medicare Annual Wellness (AWV) 1950 [facility]-/Child/Adol SDOH Screenings 1950 [facility]- SDOH Screenings 1970 [facility]-Adult SDOH Screenings 1970 [facility]-Pneumococcal Vaccine: 50 + Years (1 of 2 - PCV) 12/25/1971 CT Colonography 1997 Colonoscopy 1997 FIT-DNA 1997 FIT 1997 FOBT 1997 Sigmoidoscopy 1997 [facility]-Colorectal Cancer Screening 1997 [facility]-Breast Cancer Screening 2002 [facility]-Zoster Vaccines (1 of 2) 2002 [facility]-DTaP,Tdap,and Td Vaccine s (2 - Td or Tdap) 01/24/2024 01/23/2014 [id number] Vaccine ( season) 2024 08/13/2021, 10/23/2020, 09/25/2020 [facility]-Influenza Vaccine (#1) 2025 [facility]-RSV Vaccine: 60+ Years o r (1 - 1-dose 75+ series) 12/25/2027 HPV Vaccines Aged Out No longer eligi ble based on patient's age to complete this topic [facility]-HIB Vaccines Aged Out No longer e ligible based on patient's age to complete this topic [facility]-Hepatitis A Vaccines Aged Out No longer eligible based on patient's age to complete this topic [facility]-IPV Vaccines Aged Out No longer e ligible based on patient's age to complete this topic [facility]-Rotavirus Vaccines Aged Out No lo nger eligible based on patient's age to complete this topic Insurance ANTHEM MEDICARE Care Teams Slasher Sawyer Relationship Specialty Start Date End Date Turner Pinon MD [address] [place] [phone] PCP - General 12/14/20
--- OUTSIDE RECORDS SUMMARY | 2025-02-02 13:02 | XMS_ITS | Encounter Summary ---
Author Organization [facility] [place] [address] Care Team Providers Care Pediatric Neuropsychologist Name Role Phone Camille Pinon Primary Care Provider [phone] Encounter Details Date Type Department Care Team (Late st Contact Info) Description 09/26/2008 Orders Only [facility] [address] [place] [address] Turner Alcaraz MD Social History Tobacco Use Types Packs/Day Years Used Date Smoking Tobacco: Never Assessed Comments Unknown Sex and Gender Information Value Date Recorded Sex Assigned at Not on file Legal Sex Female 6:26 AM EDT Gender Identity Not on file Sexual Orientation Not on file documented as of this encounter Plan of Treatment Upcoming Encounters Date Type Department Care Team (Late st Contact Info) Description 02/27/2025 11:00 AM EDT Office Visit [facility] [address] [facility] [address] [place] [address] 02/27/2025 11:30 AM EDT Office Visit [facility] [address] [facility] [address] [place] [address] Parris Stark APRN [address] [place] [address] documented as of this encounter Procedures Procedure Name Priority Date/Time Associated Diagnosis Comments ECHO - HISTORICAL Routine 09/26/2008 12: 00 AM EST documented in this encounter Results * ECHO - HISTORICAL (09/26/2008 12:00 AM EST) Anatomical Region Laterality Modality Other 09/26/2008 Narrative 08/05/2011 3:55 AM EST NOTICE: This report was electronically copied on 09/17/2011 from historical data generated by a practice prior to that practice using [facility] for Medical Records. Performing Provider: Turner Alcaraz M.D. us Turner Alcaraz MD IMG ECHO ORDERABLES Final Re sult documented in this encounter Visit Diagnoses Not on filedocumented in this encounter Care Teams Pediatric Neuropsychologist Relationship Specialty Start Date End Date Camille Pinon [address] [place] [address] [address] [address] PCP - General Family Medicine 08/03/1979 documented as of this encounter
--- OUTSIDE RECORDS SUMMARY | 2025-02-02 13:02 | XMS_ITS | Encounter Summary ---
Author Organization [facility] [place] [address] Care Team Providers Care Senior Sales Operations Manager Name Role Phone Camille Pinon Primary Care Provider [phone] Encounter Details Date Type Department Care Team (Late st Contact Info) Description 11/15/2021 Orders Only [facility] [address] [facility] [address] [place] [address] Karina Muller MD [address] [place], [place] [id number] Social History Tobacco Use Types Packs/Day Years Used Date Smoking Tobacco: Former Cigarettes 0 08/03/1966 - 08/03/2013 Smokeless Tobacco: Never Alcohol Use Standard Drinks/Week Comments Not Currently 0 (1 standard drink = 0.6 oz pur e alcohol) Comments Unknown Sex and Gender Information Value Date Recorded Sex Assigned at Not on file Legal Sex Female 6:26 AM EDT Gender Identity Not on file Sexual Orientation Not on file COVID-19 Exposure Response Date Recorded In the last month, have you been in contact with someone who was confirmed or suspected to have Coronavirus / COVID-19? No / Unsure 11/14/2021 5:21 PM EDT documented as of this encounter Functional Status * Cognitive and Functional Status Question Answer Date of Assessment Author Is the person deaf or does he/she have serious difficulty hearing? No 11/15/2021 10:48 AM EDRandy Tenorio RN Is the person blind or does he/she have serious difficulty seeing even when wearing glasses? No 11/15/2021 10:48 AM Randy Leahy RN Does this person have serious difficulty walking or climbing stairs? No 11/15/2021 10:48 AM Randy Leahy RN Does this person have difficulty dressing or bathing? No 11/15/2021 10:48 AM Randy Leahy RN * Is the person deaf or does he/she have serious difficulty hearing? Answer Date of Assessment Author No 11/15/2021 10:48 AM Maribel Leahy RN * Is the person blind or does he/she have serious difficulty seeing even when wearing glasses? Answer Date of Assessment Author No 11/15/2021 10:48 AM Maribel Leahy RN * Does this person have serious difficulty walking or climbing stairs? Answer Date of Assessment Author No 11/15/2021 10:48 AM Maribel Leahy RN * Does this person have difficulty dressing or bathing? Answer Date of Assessment Author No 11/15/2021 10:48 AM Maribel Leahy RN * Because of a physical, mental or emotional condition, does this person have difficulty doing errands alone such as visiting a doctor's office or shopping? Answer Date of Assessment Author No 11/15/2021 10:48 AM Maribel Leahy RN documented as of this encounter Mental Status * Cognitive and Functional Status Question Answer Entry Date Author Because of a physical, menta l or emotional condition, does this person have difficulty doing errands alone such as visiting a doctor's office or shopping? No 11/15/2021 10:48 AM Maylin Leahy RN Because of a physical, menta l or emotional condition, does this person have serious difficulty concentrating, remembering or making decisions? No 11/15/2021 10:48 AM Maylin Leahy RN * Because of a physical, mental or emotional condition, does this person have serious difficulty concentrating, remembering or making decisions? Answer Entry Date Author No 11/15/2021 10:48 AM EDT Maribel Perdomo RN documented in this encounter Plan of Treatment Upcoming Encounters Date Type Department Care Team (Late st Contact Info) Description 02/27/2025 11:00 AM EDT Office Visit [facility] [address] [facility] [address] [place] [phone] 02/27/2025 11:30 AM EDT Office Visit [facility] [address] [facility] [address] [place] [phone] Parris Stark APRN [address] [place] [address] documented as of this encounter Procedures Procedure Name Priority Date/Time Associated Diagnosis Comments PACEART REPORT Routine 11/15/2021 9:34 AM EDT documented in this encounter Results * PACEART REPORT (11/15/2021 9:34 AM EDT) 11/15/2021 9:34 AM EDT Narrative [facility] - 11/15/2021 10:43 AM EDT - [facility] remote report from [facility]. - No [employer] rep notes recorded. - Report exported to EPIC. Elia LANDRY/CDS. Karina Muller MD [facility] CARDIAC CATH ORDERABLES F inal Result [facility] [address] [place], [place] [id number] documented in this encounter Visit Diagnoses Not on filedocumented in this encounter Additional Health Concerns Assessment Noted Time A fall risk assessment has been complete d for the patient 03/20/2021 1:07 PM EDT documented as of this encounter Care Teams Senior Sales Operations Manager Relationship Specialty Start Date End Date Camille Pinon [address] [facility] [address] [facility] [place] [id number] PCP - General Family Medicine 08/03/1979 documented as of this encounter
--- OUTSIDE RECORDS SUMMARY | 2025-02-02 13:02 | XMS_ITS | Encounter Summary ---
Author Organization [facility] Address [address] [id number] Care Team Providers Care Nuclear Licensing Engineer Name Role Phone Turner Pinon MD Primary Care Provider [phone] Reason for Referral * Consultation (Routine) - Closed Specialty Diagnoses / Procedures Referred By Contac t Referred To Contact Audiology Diagnoses Cochlear implant in place Saúl Salomon MD [address] [place] [address] Phone: tel: fax: Referral ID Status Reason Start Date Expiration Date V isits Requested Visits Authorized [id number] Closed Specialty Services Required 12/29/2023 06/29/2025 1 1 * Consultation (Routine) - Closed Specialty Diagnoses / Procedures Referred By Christa phan Referred To Contact Otolaryngology Diagnoses Cochlear implant in place Saúl Salomon MD [address] [place] [address] Phone: tel: fax: Referral ID Status Reason Start Date Expiration Date V isits Requested Visits Authorized [id number] Closed Specialty Services Required 12/29/2023 06/29/2025 1 1 Encounter Details Date Type Department Care Team ([facility] st Contact Info) Description 12/29/2023 Community [facility] [address] [place] [address] Saúl Salomon MD [address] [place] [address] (Primary Dx) Social History Tobacco Use Types Packs/Day Years Used Date Smoking Tobacco: Never Assessed Comments Unknown Sex and Gender Information Value Date Recorded Sex Assigned at Not on file Legal Sex Female 6:31 PM EDT Gender Identity Not on file Sexual Orientation Not on file documented as of this encounter Plan of Treatment Scheduled Referrals Name Type Priority Associated Diagnoses Order Schedule Ambulatory Referral to ENT Outpatient Referral Routine Cochlear implant in place Expected: 12/29/2023 (Approximate), Expires: 06/30/2025 Ambulatory Referral to Audiology Outpatient Referral Routine Cochlear implant in place Expected: 12/29/2023 (Approximate), Expires: 06/30/2025 documented as of this encounter Visit Diagnoses Diagnosis Cochlear implant in place- Primary documented in this encounter Care Teams Nuclear Licensing Engineer Relationship Specialty Start Date End Date Turner Pinon MD [address] [place] [address] PCP - General 12/14/20 documented as of this encounter
== END 2025-01-31 23:59 | disposition home or self-care (01) ==
LOC: LAB.DROPOF 02-02 12:57
PROVIDERS: PCP Nurse Practitioner; Visit Provider Nurse Practitioner
DX: R73.01 Impaired fasting glucose (principal); I10 Essential (primary) hypertension
CPT/HCPCS: 80053; 83036

== ENCOUNTER 2025-06-05 07:23 | Outpatient (CLI) | payer MEDICARE, SELFPAY ==
--- OUTSIDE RECORDS SUMMARY | 2025-04-10 12:30 | XMS_ITS | Encounter Summary ---
Author Organization [place] [address] Care Team Providers Care Ethnic Origins Teacher Name Role Phone Camille Pinon Primary Care Provider [phone] Reason for Referral * (Routine) - Pending Review Specialty Diagnoses / Procedures Referred By Christa phan Referred To Contact Diagnoses Recurrent epigastric hernia Procedures BETA SURGERY COMMUNICATION ORDER Angelo Christina DO [address] [facility] [address] [place] [address] Phone: tel: fax: Referral ID Status Reason Start Date Expiration Date V isits Requested Visits Authorized [id number] Pending Review 04/10/2025 04/10/2026 1 1 Reason for Visit * Reason Comments New Patient Hernia Ventral Encounter Details Date Type Department Care Team (Late st Contact Info) Description 04/10/2025 1:30 PM EDT Office Visit [facility] Surg [facility] [address] [facility] [address] [place] [phone] Angelo Christina DO [address] [facility] [address] [place] [id number] Recurrent epigastric hernia (Primary Dx) Social History Tobacco Use Types [...] on file documented as of this encounter Last Filed Vital Signs Vital Sign Reading Time Taken Comments Blood Pressure 118/62 04/10/2025 1:31 PM EDT Pulse 55 04/10/2025 1:31 PM EDT Temperature 36.8 C (98.2 F) 04/10/2025 1:31 PM EDT Respiratory Rate 13 04/10/2025 1:31 PM EDT Oxygen Saturation - - Inhaled Oxygen Concentration - - Weight 88 kg (194 lb) 04/10/2025 1:31 PM EDT Height 162.6 cm (5' 4 ) 04/10/2025 1:31 PM EDT Body Mass Index 33.3 04/10/2025 1:31 PM EDT documented in this encounter Functional Status * Is the person deaf or does he/she have serious difficulty hearing? Answer Date of Assessment Author No 11/15/2021 10:48 AM EDT Maribel Perdomo RN * Is the person blind or does he/she have serious difficulty seeing even when wearing glasses? Answer Date of Assessment Author No 11/15/2021 10:48 AM WILT Maribel Perdomo RN * Does this person have serious [...] as of this encounter Mental Status * Because of a physical, mental or emotional condition, does this person have serious difficulty concentrating, remembering or making decisions? Answer Entry Date Author No 11/15/2021 10:48 AM WILT Maribel Perdomo RN documented in this encounter Progress Notes * Angelo Christina, DO - 04/10/2025 1:30 PM EDT History and Physical: New Consult Patient: Radha Osborne Date of : 1950 Age: 74 y.o. Sex: female Primary Care Physician: Camille Pinon Referring Physician: No ref. provider found Chief Complaint: New Patient and Hernia (Ventral ) Subjective History of Present Illness: Radha is a 74 y/o patient referred for a ventral hernia by her PCP Patti Martinez. Patient first noticed the hernia 6 months ago. Hernia has increased in size since they first noticed it. It is not causing pain/soreness. Patient does try to push it back in. Denies any issues with eating/drinking. Continues to have bowel function. Denies urinary complaints. Previous hernia surgery includes: Roboticincisional hernia repair without mesh 12/24/21. Previous abdominal surgery includes: Cholecystectomyover 20 years ago. On anticoagulation. They are not a smoker. 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 Muller + single chamber pacemaker HTN (hypertension) Mild mitral regurgitation Pacemaker PONV (postoperative nausea and vomiting) after cochlear implant Pre-diabetes Shortness of breath Not every day Past Surgical History: Procedure Laterality Date CARPAL TUNNEL RELEASE Left 12/23/2023 Left Endoscopic Carpal Tunnel Release; Surgeon: Leandro Taylor MD; Location: [facility]; Service: Orthopedics CATARACT EXTRACTION EXTRACAPSULAR W/ INTRAOCULAR LENS IMPLANTATION Left 08/09/2019 Dr. Henrik Edmonds CATARACT EXTRACTION EXTRACAPSULAR W/ INTRAOCULAR LENS IMPLANTATION Right 08/23/2019 Dr. Leidy Edmonds CHOLECYSTECTOMY EAR SURGERY Right cochlear implant EYE SURGERY HYSTERECTOMY KNEE SURGERY Bilateral TKR PACEMAKER IMPLANT N/A 11/14/2021 LEADLESS PACEMAKER IMPLANT-DIRECTOR DRUG SAFETY ONLY [46]; Surgeon: Karina Muller MD; Location: [facility]; Service: Cardiac PACEMAKER INSERTION 11/14/2021 Medtronic single chamber PPM by Dr. Muller TONSILLECTOMY ULNAR TUNNEL RELEASE Left 11/10/2024 LEFT CUBITAL TUNNEL RELEASE; Surgeon: Edilberto Mott MD; Location: [facility]; Service: Orthopedics VENTRAL HERNIA REPAIR N/A 2021 Robotic incisional hernia repair ; Surgeon: Radha Pepe MD; Location: [facility]; Service:Robotics Social History Tobacco Use Smoking status: Former Current packs/day: 0.00 Average packs/day: 1 pack/day for 47.0 years (47.0 ttl pk-yrs) Types: Cigarettes Start date: 08/03/1966 Quit date: 08/03/2013 Years since quittin.6 Smokeless tobacco: Never Substance Use Topics Alcohol use: Not Currently Family History Problem Relation Age of Onset Anesth Problems Neg Hx Outpatient Medications Marked as Taking for the 04/10/25 encounter (Office Visit) with Ryan Christina DO Medication Sig Dispense Refill albuterol (PROVENTIL HFA;VENTOLIN HFA) 90 mcg/actuation Inhl HFA Aerosol Inhaler INHALE 2 PUFFS INTO THE LUNGS EVERY 6 HOURS NEEDED FOR SHORTNESS OF BREATH OR WHEEZING. benazepril-hydrochlorthiazide (LOTENSIN HCT) 20-25 mg Oral Tablet Take 1 Tablet by mouth daily. BREO ELLIPTA 100-25 mcg/dose Inhl Disk with Device Inhale 1 Puff into the lungs daily. dapagliflozin propanediol (FARXIGA) 10 mg Oral Tablet Take 10 mg by mouth daily. Indications: heartfailure associated with type 2 diabetes mellitus fUROsemide (LASIX) 20 mg Oral Tablet Take 40 mg by mouth daily. fUROsemide (LASIX) 40 mg Oral Tablet Take 60 mg by mouth daily. hydroCHLOROthiazide (HYDRODIURIL) 25 mg Oral Tablet Take 25 mg by mouth daily. meloxicam (MOBIC) 15 mg Oral Tablet Take 7.5 mg by mouth daily. metoprolol succinate (TOPROL-XL) 25 mg Oral Tablet Sustained Release 24 hr Take 50 mg by mouth daily. rivaroxaban (XARELTO) 20 mg Oral Tablet Take 1 Tablet by mouth daily. 90 Tablet 1 Allergies: Allergies Allergen Reactions Cephalexin Shortness Of Breath and Swelling Penicillins Hives Trimethoprim Diarrhea Oxycodone Other (See Comments) Confusion Sulfamethoxazole Diarrhea Review of Systems: Constitutional: no weight loss, fever, night sweats Eyes: no visual blurring, visual loss ENT: no deafness, tinnitus Respiratory: no shortness of breath, cough, wheezing Cardiovascular: no palpitations, chest pain Gastrointestinal: no nausea, abdominal pain, constipation, diarrhea : no dysuria, frequency Integumentary: no rash, bruising Musculoskeletal: no muscle weakness, muscle pain Neurological: no numbness, weakness, speech or visual changes Visit Vitals: BP 118/62 Pulse 55 Temp 98.2 ??F (36.8 ??C) (Forehead) Resp 13 Ht 5' 4 (1.626 m) Wt 194 lb (88 kg) BMI 33.30 kg/m?? Physical Exam: Constitutional: in no apparent distress and well developed and well nourished Eyes:EOMI, no periorbital cellulitis ENT: neck supple without discomfort Respiratory: normal effort and symmetrical chest expansion Cardiovascular: regular rate and rhythm, no edema or JVD Gastrointestinal: soft, non-tender; bowel sounds normal; no masses, no organomegaly Extremities: normal strength, tone, and muscle mass, no deformities Skin: no rashes, no ecchymoses Hernia: recurrent epigastric hernia. Fat containing. Not reducible. Nontender Imaging: @RISRSLT@ Labs Reviewed: No visits with results within 30 Day(s) from this visit. Latest known visit with results is: Hospital Outpatient Visit on 03/08/2025 Component Date Value Ref Range Status Sodium 03/08/2025 139 136 - 145 mmol/L Final Potassium 03/08/2025 4.0 3.5 - 5.0 mmol/L Final Chloride 03/08/2025 100 98 - 107 mmol/L Final Total CO2 03/08/2025 27 22 - 29 mmol/L Final Anion Gap 03/08/2025 12 7 - 16 mmol/L Final Calcium 03/08/2025 9.8 8.8 - 10.4 mg/dL Final Glucose Lvl 03/08/2025 104 (H) 70 - 99 mg/dL Final BUN 03/08/2025 22 8 - 23 mg/dL Final Creatinine 03/08/2025 0.63 0.51 - 1.30 mg/dL Final eGFR (CKD-EPIcr 2020) 03/08/2025 94 >=60 mL/min/1.73 m2 Final Assessment/Plan: Recurrent epigastric hernia - patient seen and examined. Labs, imaging, and vitals reviewed by me personally. - Patient has a recurrent epigastric incisional hernia on exam. Discussed the natural history of hernias. Discussed that surgery is the only way to fix hernias. Plan on minimally invasive repair. In the meantime, I have explained the warning symptoms of incarceration/strangulation and patient knowsto call me or go to the ER if any of these occur. - plan on robotic recurrent epigastric hernia repair with phasix, possible open. Informed consent obtained. Risks, benefits, and alternatives discussed. Patient was given time to ask questions and all questions were answered. Patient verbalized understanding and agree to proceed with procedure. Afib - will need to hold xarelto prior to surgery - cardiac clearance Obesity - BMI 33, complicates all things - diet, exercise, weight loss All questions have been answered. Electronically signed by Angelo Christina DO 04/10/2025 Please note that some or all of this record was generated using voice recognition software. If there are any questions about the content of this document, please contact the author as some errors of orthopedic designer may have occurred. documented in this encounter Plan of Treatment Upcoming Encounters Date Type Department Care Team (Latest Contact Info) Description 06/16/2025 7:30 AM EST Hospital Encounter [facility] [address] [place] [address] Angelo Christina DO [address] [facility] [address] [place] [address] 06/16/2025 7:30 AM EST Anesthesia Event [facility] [address] [place] [address] Record, Anaya Stanley, LEADERSHIP PROGRAM INTERN [address] [facility] [place] [id number] 06/16/2025 7:30 AM EST - 06/16/2025 9:35 AM EST Surgery [facility] [address] [place] [address] Angelo Christina, DO [address] [facility] [place], [place] [phone] DAVINCI ROBOTIC VENTRAL/INCISIONAL HERNIA REPAIR 02/27/2026 11:00 AM EDT Office Visit [facility] [address] [facility] [address] [place] [address] 02/27/2026 11:30 AM EDT Office Visit [facility] [address] [facility] [address] [place] [address] Parris Stark APRN [address] [place] [address] Scheduled Procedures Name Priority Associated Diagnoses Date/Ti hi DAVINCI ROBOTIC VENTRAL/INCISIONAL HERNIA REPAIR Recurrent epigastric hernia 06/16/2025 7:30 AM EST documented as of this encounter Visit Diagnoses Diagnosis Recurrent epigastric hernia- Primary Recurrent epigastric hernia documented in this encounter Historical Medications * This list may reflect changes made after this encounter. BREO ELLIPTA 100-25 mcg/dose Inhl Disk with Device Inhale 1 Puff into the lungs daily. 03/17/2025 fUROsemide (LASIX) 40 mg Oral Tablet Take 60 mg by mouth daily. 03/31/2025 added in this encounter Orders Nursing Count Last Ordered Date First Orde red Date BETA SURGERY COMMUNICATION ORDER 1 04/10/20 25 documented in this encounter Additional Health Concerns Assessment Noted Time A fall risk assessment has been complete d for the patient 02/17/2024 11:07 AM EDT documented as of this encounter Care Teams Ethnic Origins Teacher Relationship Specialty Start Date End Date Camille Pinon [address] [place] [id number] PCP - General Family Medicine 08/03/1977 documented as of this encounter
--- OUTSIDE RECORDS SUMMARY | 2025-06-02 11:54 | XMS_ITS | Encounter Summary ---
Author Organization [facility] Address [facility] [place] [address] Care Team Providers Care Lead Electrical Controls Engineer Name Role Phone Camille Pinon Primary Care Provider [phone] Encounter Details Date Type Department Care Team (Latest Contact Info) Description 06/02/2025 12:54 PM EDT - 06/02/2025 11:59 PM EDT Hospital Encounter EDG PRE-ADMIT TESTING [facility] [address] [place] [id number] Preop testing (Primary Dx); Recurrent epigastric hernia Discharge Disposition: Home or Self Care Anesthesia Record Procedure Summary Procedure Name Responsible Anesthesiologist Anesthesia Start Time Anesthesia Stop Time DAVINCI ROBOTIC VENTRAL/INCISIONAL HERNIA REPAIR Events No events on file. Meds * Agents No agents on file. * Blood No blood administrations on file. Lines, Drains, and Airways No LDAs on file. documented in this encounter Social History Tobacco Use Types Packs/Day Years [...] Sign Reading Time Taken Comments Blood Pressure 142/77 06/02/2025 1:11 PM EDT Pulse 86 06/02/2025 1:11 PM EDT Temperature 36.9 C (98.5 F) 06/02/2025 1:11 PM EDT Respiratory Rate 16 06/02/2025 1:11 PM EDT Oxygen Saturation 97% 06/02/2025 1:11 PM EDT Inhaled Oxygen Concentration - - Weight 88.1 kg (194 lb 3.2 oz) 06/02/2025 1:11 P M EDT Height 162.6 cm (5' 4 ) 06/02/2025 1:11 PM EDT Body Mass Index 33.33 06/02/2025 1:11 PM EDT documented in this encounter Functional Status * Is the person deaf or does he/she have serious difficulty hearing? Answer Date of Assessment Author No 11/15/2021 10:48 AM WILT Maribel Perdomo RN * Is the person [...] 10:48 AM WILT Maribel Perdomo RN * Because of a physical, mental [...] Entry Date Author No 11/15/2021 10:48 AM Maribel Leahy RN documented in this encounter Discharge Instructions * Discharge Instructions* Amaya Porter RN - 06/02/2025 1:41 PM EDT Images from the original note were not included. PREPARING FOR YOUR SURGERY Date of Surgery: 06/16/25 Arrival time: Your surgeon may have already provided this, check your paperwork from the office. Ifnot received, call your surgeon's office. Location: [place] Medications on the Day of Surgery Take the following medications on the morning of surgery: Metoprolol Use/Bring Inhalers Medications to hold prior to surgery; Verify with your doctor for possibly discontinuing the following medications: blood thinners, aspirin, or anti-inflammatories. Stop taking all supplements 7 days prior to your surgery. Do not take any MICHELET inhibitors (ends in PRIL ) or angiotensin receptor blockers (ends in SARTAN )on the day of surgery No Benazapril Day of surgery Hold Farxiga 3 days prior to surgery. Last dose 06/13/25 prior to surgery Food, Drinks, Tobacco Do not eat food after midnight. This includes gum, mints, candy, chewing tobacco, and dip. Unless otherwise instructed by your surgeon, you may consume water, Gatorade, Powerade, black coffee/tea (nomilk, no cream/creamers, no sugar). Finish these liquids 2 hours prior to your scheduled arrival time. No exceptions or substitutions to these restrictions. Do not smoke, vape, or use any type of tobacco or marijuana products within 24 hours prior to surgery. Smoking will also slow your rate of healing. It is advised that you do not smoke during the healing process. No alcohol 24 hours prior to surgery. Radiologic Technologist Chief It is important to have a Radiologic Technologist Chief, someone who is 18 years or older, to accompany you and remain in the facility for the duration of your surgery. This person should be available for the Perioperative Team, which includes your surgeon, to communicate with before, during and after your surgery. Because you are receiving anesthesia, someone is needed to drive you home and remain with you for at least 24 hours after surgery to make sure you are safe during that time We also recommend that no children be present on the day of surgery. If you have a concern, please reach out to our department [phone]. Hygiene [place] your teeth and gargle the morning of surgery. Shower the morning of surgery or the night before. Do not wear makeup (including eye makeup) lotion, powder, deodorant, perfume, or cologne. Do not shave the operative extremity or near the operative area. Remove nail algerian prior to surgery. This includes artificial nails and gel nail algerian. Personal Items Wear clean, simple, loose-fitting clothing (no jeans) and sturdy shoes (no flip flops, slides or crocs) to the hospital. Do not bring unnecessary valuables with you. It is policy that [facility] does not assume responsibility for lost, stolen or broken personal items that are brought in. Exceptions may be consideredfor items which are considered necessary for your healthcare. These items will be formally documented. Remove all jewelry prior to surgery to prevent injury. We will not tape wedding rings/bands Remove all body piercings prior to arrival. Plastic inserts are acceptable. If you have dentures, they may need to be removed before going into the operating room. We will have a case for them. Glasses and contacts will need to be removed prior to surgery. Please bring a case for them.. If you have hearing aids, please wear them to the hospital and bring a case. Bring with You Bring a copy of your Living Will and/or Durable Power of Vein Access Technician for Healthcare. Bring Incentive spirometer on the day of surgery. Vaccines It is recommended that you do not receive vaccines 7 days before or after surgery. Notify the Surgeon Notify your surgeon if you develop any illness (fever, cold, cough, sore throat, nausea, vomiting, skin rashes etc.) between now and surgery time Notify your surgeon and Pre-admission testing ([phone]) if you have any changes in your healthconditions or if any new medications are ordered between now and surgery.. Questions or Concerns? If you have any questions or concerns, feel free to call the Pre-Admission testing department at [phone]. We want to make sure you feel safe and have an excellent experience while you are here. Do not reply to this message through [facility] [employer] as it may not be answered promptly. Same Day [facility] - [place] at [phone]; Please get dropped off at Main Entrance 1A Stopat frontload driver and they will direct you to registration. Parking will be to the left of the buildingin the parking lot and parking garage. After surgery, you will be discharged from surgery discharge door 4. - [address] [place] [address]. DOORS OPEN AT 6:00 AM THU-THU AND 6:30 AM ON THURSDAY * Attachments The following attachments cannot be sent through Care Everywhere. * How to use an incentive spirometer (Grenadian) documented in this encounter Medications at Time of Discharge acetaminophen (TYLENOL) 500 mg Oral Tablet Take by mouth every 4 hours as needed for Pain. Rapi release albuterol (PROVENTIL HFA;VENTOLIN HFA) 90 mcg/actuation Inhl HFA Aerosol Inhaler INHALE 2 PUFFS INTO THE LUNGS EVERY 6 HOURS NEEDED FOR SHORTNESS OF BREATH OR WHEEZING. 02/20/2022 ascorbic acid, vitamin C, (VITAMIN C) 1,000 mg Oral Tablet Take 1,000 mg by mouth daily. benazepriL (LOTENSIN) 10 mg Oral Tablet Take 10 mg by mouth daily. 12/13/2021 BREO ELLIPTA 100-25 mcg/dose Inhl Disk with Device Inhale 1 Puff into the lungs daily. 03/17/2025 dapagliflozin propanediol (FARXIGA) 10 mg Oral TabletIndications: heart failure associated with type 2 diabetes mellitus Take 10 mg by mouth daily. Indications: heart failure associated with type 2 diabetes mellitus fUROsemide (LASIX) 40 mg Oral Tablet Take 60 mg by mouth daily. 03/31/2025 hydroCHLOROthiazid e (HYDRODIURIL) 25 mg Oral Tablet Take 25 mg by mouth daily. 12/13/2021 Lactobacillus acidophilus (PROBIOTIC ORAL) Take by mouth daily. meloxicam (MOBIC) 15 mg Oral Tablet Take 15 mg by mouth daily. 12/13/2020 metoprolol succinate (TOPROL-XL) 25 mg Oral Tablet Sustained Release 24 hr Take 50 mg by mouth daily. 12/27/2020 multivit-mins no.63/iron/folic (M-VIT ORAL) Take by mouth daily. rivaroxaban (XARELTO) 20 mg Oral TabletIndications: Persistent atrial fibrillation (HCC) Take 1 Tablet by mouth daily. 90 Tablet 1 06/18/2021 vitamin E acetate (VITAMIN E ORAL) Take 1,000 mg by mouth daily. documented as of this encounter Discharge Disposition Disposition Code Departure Means Destination Home or Self Care documented in this encounter Plan of Treatment Upcoming Encounters Date Type Department Care Team (Latest Contact Info) Description 06/16/2025 7:30 AM EST Hospital Encounter [facility] [address] [place] [place] [address] Angelo Christina, DO [address] [facility] [address] [place] [address] 06/16/2025 7:30 AM EST Anesthesia Event [facility] [address] [place] [address] Georgette, Anaya Stanley, SCLEROSCOPE TESTER 1 [facility] [place] [address] 06/16/2025 7:30 AM EST - 06/16/2025 9:35 AM EST Surgery [facility] [address] [place] [place] [address] Angelo Christina, DO [address] [facility] [address] [place] [address] DAVINCI ROBOTIC VENTRAL/INCISIONAL HERNIA REPAIR 02/27/2026 11:00 AM EDT Office Visit [facility] [address] [facility] [address] [place] [id number] 02/27/2026 11:30 AM EDT Office Visit [facility] [address] [facility] [address] [place] [address] Parris Stark, SCLEROSCOPE TESTER [address] [place] [address] Scheduled Procedures Name Priority Associated Diagnoses Date/Ti me DAVINCI ROBOTIC VENTRAL/INCISIONAL HERNIA REPAIR Recurrent epigastric hernia 06/16/2025 7:30 AM EST documented as of this encounter Goals Goal Patient Goal Type Associated Problems Recent Progress Patient-Stated? Author Autogenera sergio Goal Care Plan Autogenerated Problem No Liss Riggs, Clerical Staff documented as of this encounter Procedures Procedure Name Priority Date/Time Associated Diagnosis Comments CBC WITH DIFF Routine 06/02/2025 2:22 PM EDT Preop testing Recurrent epigastric hernia documented in this encounter Results * (ABNORMAL) CBC WITH DIFF (06/02/2025 2:22 PM EDT) WBC 7.5 3.7 - 10.3 x10(3)/mcL 06/02/2025 3:20 PM EDT [facility] RBC 5.21(H) 3.90 - 5.20 x10(6)/mcL 06/02/2025 3:20 PM EDT [facility] Hgb 14.8 11.2 - 15.7 g/dL 06/02/2025 3:20 PM EDT [facility] Hct 45.4(H) 34.0 - 45.0 % 06/02/2025 3:20 PM EDT [facility] MCV 87.1 80.0 - 100.0 fL 06/02/2025 3:20 PM EDT [facility] MCH 28.4 26.0 - 34.0 pg 06/02/2025 3:20 PM EDT [facility] MCHC 32.6 30.7 - 35.5 g/dL 06/02/2025 3:20 PM EDT [facility] RDW 14.0 <=14.9 % 06/02/2025 3:20 PM EDT [facility] Platelet 271 155 - 369 x10(3)/mcL 06/02/2025 3:20 PM EDT [facility] MPV 11.0 8.8 - 12.5 fL 06/02/2025 3:20 PM EDT [facility] Neut Percent 62.4 % 06/02/2025 3:20 PM EDT [facility] Comment:Neutrophils equals s egs plus bands Imm Gran% 0.1 % 06/02/2025 3:20 PM EDT [facility] Comment:Automated count of m etamyelocytes, myelocytes and promyelocytes. Lymph Percent 24.0 % 06/02/2025 3:20 PM EDT [facility] Donley Percent 9.9 % 06/02/2025 3:20 PM EDT [facility] Eos Percent 2.9 % 06/02/2025 3:20 PM EDT [facility] Baso Percent 0.7 % 06/02/2025 3:20 PM EDT [facility], [facility] Neut # 4.7 1.6 - 6.1 x10(3)/[facility] 06/02/2025 3:20 PM EDT [facility] Comment:Neutrophils equals s egs plus bands IMMGRAN# 0.0 0.0 - 0.1 x10(3)/mcL 06/02/2025 3:20 PM EDT [facility] [employer] Comment:Automated count of m etamyelocytes, myelocytes and promyelocytes. An absolute IG <0.1 is reported as 0.0. Lymph # 1.8 1.2 - 3.9 x10(3)/mcL 06/02/2025 3:20 PM EDT [facility] [employer], [facility] Donley # 0.7 0.3 - 0.9 x10(3)/mcL 06/02/2025 3:20 PM EDT [facility] Eos# 0.2 0.0 - 0.5 x10(3)/[facility] 06/02/2025 3:20 PM EDT [facility] [employer] Baso # 0.1 0.0 - 0.1 x10(3)/[facility] 06/02/2025 3:20 PM EDT [facility] [employer] Blood VENOUS BLOOD / Unknown Venipuncture / Unknown 06/02/2025 2:22 PM EDT 06/02/2025 3:04 PM EDT Anaya Stanley Record SCLEROSCOPE TESTER HEMATOLOGY ORDERABLES Final Result [facility] [employer], [facility] [address] [facility] , [place] [address] documented in this encounter Visit Diagnoses Diagnosis Recurrent epigastric hernia- Primary Preop testing- Primary Preoperative examination, unspecified Recurrent epigastric hernia Recurrent epigastric hernia documented in this encounter Discontinued Medications Medication Sig Discontinue Reason Start Date End Da te fUROsemide (LASIX) 20 mg Oral Tablet Take 40 mg by mouth daily. 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 DELETE-Therapy completed 06/02/2025 predniSONE (DELTASONE) 10 mg Oral TabletIndications:Cerv ical spondylosis 20 mg x 3 days, 10 mg x 3 days, 5 mg x 3 days DELETE-Therapy completed 01/21/2024 06/02/2025 benazepril-hydrochlort hiazide (LOTENSIN HCT) 20-25 mg Oral Tablet Take 1 Tablet by mouth daily. DELETE- Stopped by provider 01/09/2021 06/02/2025 documented as of this encounter Historical Medications * This list may reflect changes made after this encounter. multivit-mins no.63/iron/folic (M-VIT ORAL) Take by mouth daily. Lactobacillus acidophilus (PROBIOTIC ORAL) Take by mouth daily. vitamin E acetate (VITAMIN E ORAL) Take 1,000 mg by mouth daily. acetaminophen (TYLENOL) 500 mg Oral Tablet Take by mouth every 4 hours as needed for Pain. Rapi release added in this encounter Additional Health Concerns Active Problems Noted Date Diagnosed Date Autogenerated Problem 04/14/2025 Assessment Noted Time A fall risk assessment has been complete d for the patient 02/17/2024 11:07 AM EDT documented as of this encounter Care Teams Lead Electrical Controls Engineer Relationship Specialty Start Date End Date Camille Pinon [address] [place] [address] [address] [place] [address] PCP - General Family Medicine 08/03/1977 documented as of this encounter
[2025-06-05 17:05] LABS: Alanine Aminotransferase 31 U/L (12-78); Albumin Level 4.2 g/dl (3.5-5.0); Albumin/Globulin Ratio 1.6 (1.1-1.8); Alkaline Phosphatase 97 U/L (38-126); Anion Gap 9.0 mEq/L (5-15); Aspartate Amino Transferase 32 U/L (14-36); Bilirubin,Total 0.7 mg/dl (0.2-1.3); Blood Urea Nitrogen 24 mg/dl (7-17); Calcium 9.2 mg/dl (8.4-10.2); Carbon Dioxide 30 mmol/L (22.0-30.0); Chloride 98 mmol/L (98-107); Cholesterol 176 mg/dl (140-200); Creatinine,Serum 0.70 mg/dl (0.52-1.04); Estimated Glomerular Filt Rate 82 ml/min (>60); GFR (African American) 100 ML/MIN (>60); Globulin 2.6 g/dL (1.3-3.2); Glucose 106 mg/dl (74-100); HDL Cholesterol 46 mg/dl (40-60); Potassium 4.0 mmoL/L (3.5-5.1); Sodium 133 mmol/L (136-145); Total Protein,Serum 6.8 g/dl (6.3-8.2); Triglycerides 121 mg/dl (30-150)
[2025-06-05 18:49] LABS: Hepatitis C Ab Qual. W/ RFX NEGATIVE (Negative)
[2025-06-05 19:05] LABS: Hemoglobin A1C 5.9 % (4.0-6.0)
--- OUTSIDE RECORDS SUMMARY | 2025-06-07 07:25 | XMS_ITS | Encounter Summary ---
Author Organization [place] [address] Care Team Providers Care Radiotelegraph Operator Name Role Phone Camille Pinon Primary Care Provider [phone] Encounter Details Date Type Department Care Team (Late st Contact Info) Description 05/16/2025 Orders Only [facility] [address] [facility] [address] [place] [address] Karina Muller MD [address] [place], [place] [id number] Vector Remote Device Social History Tobacco Use Types Packs/Day Years [...] on file documented as of this encounter Functional Status * Is the [...] 10:48 AM EDT Maribel Perdomo RN * Does this person have difficulty dressing or bathing? Answer Date of Assessment Author No 11/15/2021 10:48 AM EDT Maribel Perdomo RN * Because of a physical, mental or emotional condition, does this person have difficulty doing errands alone such as visiting a doctor's office or shopping? Answer Date of Assessment Author No 11/15/2021 10:48 AM EDT Maribel Perdomo RN documented as of this encounter Mental [...] [facility] [address] [place] [place] [address] Angelo Christina DO [address] [place] [address] [address] [place] [address] 06/16/2025 7:30 AM EST Anesthesia Event [facility] [address] [place] [place] [address] Record, Anaya Stanley APRN 1 [place] [address] 06/16/2025 7:30 AM EST - 06/16/2025 9:35 AM EST Surgery [facility] [address] [place] [address] Angelo Christina [address] [place] [address] DAVINCI ROBOTIC VENTRAL/INCISIONAL HERNIA REPAIR 02/27/2026 11:00 AM EDT Office Visit [facility] [address] [facility] [address] [place] [address] 02/27/2026 11:30 AM EDT Office Visit [facility] [address] [facility] [address] [place] [address] Parris Stark APRN [address] [place], [place] [id number] Scheduled Procedures Name Priority Associated Diagnoses Date/Ti mn DAVINCI ROBOTIC VENTRAL/INCISIONAL HERNIA REPAIR Recurrent epigastric hernia 06/16/2025 7:30 AM EST documented as of this encounter Goals Goal Patient Goal Type Associated Problems Recent Progress Patient-Stated? Author Autogenera sergio Goal Care Plan Autogenerated Problem No Liss Riggs, Clerical Staff documented as of this encounter Procedures Procedure Name Priority Date/Time Associated Diagnosis Comments VA REM INTERROG PM/LDLS PM <90 D PHYS/QHP Routine 05/16/2025 Vector Remote Device documented in this encounter Results * VECTOR REMOTE DEVICE (05/16/2025) 05/16/2025 Narrative [facility] - 05/16/2025 No episodes. Patient on AC. Mode: VVIR. ELECTROLYSIST: 100%. Normal device function. us Karina Muller MD [facility] CARDIAC CATH ORDERABLES F inal Result [facility] [address] [place] [address] documented in this encounter Visit Diagnoses Diagnosis Recurrent epigastric hernia- Primary Vector Remote Device Recurrent epigastric hernia documented in this encounter Additional Health Concerns Active Problems Noted Date Diagnosed Date Autogenerated Problem 04/14/2025 Assessment Noted Time A fall risk assessment has been complete d for the patient 02/17/2024 11:07 AM EDT documented as of this encounter Care Teams Radiotelegraph Operator Relationship Specialty Start Date End Date Camille Pinon [address] [place] [id number] [address] [place] [address] PCP - General Family Medicine 08/03/1977 documented as of this encounter
--- OUTSIDE RECORDS SUMMARY | 2025-06-07 07:25 | XMS_ITS | Encounter Summary ---
Author Organization [facility] [place] [address] Care Team Providers Care Floor Layer Apprentice Name Role Phone Camille Pinon Primary Care Provider [phone] Encounter Details Date Type Department Care Team (Latest Contact Info) Description 06/02/2025 Travel Social History Tobacco Use Types Packs/Day Years [...] Encounter [facility] [address] [place] [address] Angelo Christina, DO [address] [facility] [address] [place] [address] 06/16/2025 7:30 AM EST Anesthesia Event [facility] [address] [place] [address] Georgette, Anaya Stanley, CLOTHES SEPARATOR 1 [place] [address] 06/16/2025 7:30 AM EST - 06/16/2025 9:35 AM EST Surgery [facility] [address] [place] [address] Angelo Christina, [address] [facility] [address] [place] [address] DAVINCI ROBOTIC VENTRAL/INCISIONAL HERNIA REPAIR 02/27/2026 11:00 AM EDT Office Visit [facility] [address] [facility] [address] [place] [address] 02/27/2026 11:30 AM EDT Office Visit [facility] [address] [facility] [address] [place] [address] Parris Stark, CLOTHES SEPARATOR [address] [place] [address] Scheduled Procedures Name Priority Associated Diagnoses Date/Ti me COLEMAN ROBOTIC VENTRAL/INCISIONAL HERNIA REPAIR Recurrent epigastric hernia 06/16/2025 7:30 AM EST documented as of this encounter Goals Goal Patient Goal Type Associated Problems Recent Progress Patient-Stated? Author Autogenera sergio Goal Care Plan Autogenerated Problem No Liss Riggs, Clerical Staff documented as of this encounter Visit Diagnoses Not on filedocumented in this encounter Additional Health Concerns Active Problems Noted Date Diagnosed Date Autogenerated Problem 04/14/2025 Assessment Noted Time A fall risk assessment has been complete d for the patient 02/17/2024 11:07 AM EDT documented as of this encounter Care Teams Floor Layer Apprentice Relationship Specialty Start Date End Date Camille Pinon [address] [place] [address] [address] [place] [address] PCP - General Family Medicine 08/03/1977 documented as of this encounter
--- OUTSIDE RECORDS SUMMARY | 2025-06-07 07:25 | XMS_ITS | Encounter Summary ---
Author Organization [place] [address] Care Team Providers Care Torch Burner Name Role Phone Camille Pinon Primary Care Provider [phone] Encounter Details Date Type Department Care Team (Late st Contact Info) Description 05/16/2025 E-Consult [facility] [address] [facility] [address] [place] [address] Karina Muller MD [address] [place], [place] [id number] Social History Tobacco Use Types Packs/Day Years [...] documented in this encounter Progress Notes * Karina Muller MD - 05/16/2025 8:22 AM EDT note Re: holding Xarelto for 72 hrs prior to procedure Ok to hold oral AC for 3 days prior to planned surgery without bridging and resume as soon as possible postoperatively. Patient with permanent atrial fibrillation and considered at moderate risk of thromboembolism in perioperative period when holding oral AC documented in this encounter Plan of Treatment Upcoming Encounters Date Type Department Care Team (Latest Contact Info) Description 06/16/2025 7:30 AM EST Hospital Encounter [facility] [address] [place] [address] Angelo Christina, DO [address] [facility] [address] [place] [address] 06/16/2025 7:30 AM EST Anesthesia Event [facility] [address] [place] [address] Georgette, Anaya Stanley, COW TESTER 1 [facility] [place] [address] 06/16/2025 7:30 AM EST - 06/16/2025 9:35 AM EST Surgery [facility] [address] [place] [address] Angelo Christina DO [address] [facility] [address] [place] [address] DAVINCI ROBOTIC VENTRAL/INCISIONAL HERNIA REPAIR 02/27/2026 11:00 AM EDT Office Visit [facility] [address] [facility] [address] [place] [address] 02/27/2026 11:30 AM EDT Office Visit [facility] [address] [facility] [address] [place] [address] Parris Stark APRN [address] [place], [place] [phone] Scheduled Procedures Name Priority Associated Diagnoses Date/Ti ma DAVINCI ROBOTIC VENTRAL/INCISIONAL HERNIA REPAIR Recurrent epigastric [...] documented as of this encounter Care Teams Torch Burner Relationship Specialty Start Date End Date Camille Pinon [address] [place] [address] [place] [address] PCP - General Family Medicine 08/03/1977 documented as of this encounter
--- OUTSIDE RECORDS SUMMARY | 2025-06-07 07:25 | XMS_ITS | Clinical Summary ---
Author Organization [facility] Address [address] [place] [address] Phone Care Team Providers Care Administrative Hearing Officer Name Role Phone Camille Pinon Primary Care Provider [phone] Allergies Active Allergy Reactions Criticality Noted Date Comments Cephalexin Shortness Of Breath,Swelling High 022 Oxycodone Other (See Comments) Low 04/25/2024 Confusion Penicillins Hives Medium 04/25/2024 Sulfamethoxazole Diarrhea Medium 04/25/2024 Trimethoprim Diarrhea Medium Medications metoprolol succinate (TOPROL-XL) 25 mg Oral Tablet Sustained Release 24 hr Take 50 mg by mouth daily. 12/28/19 21 Active meloxicam (MOBIC) 15 mg Oral Tablet Take 15 mg by mouth daily. 12/14/19 21 Active ascorbic acid, vitamin C, (VITAMIN C) 1,000 mg Oral Tablet Take 1,000 mg by mouth daily. Active rivaroxaban (XARELTO) 20 mg Oral TabletIndication s:Persistent atrial fibrillation (HCC) Take 1 Tablet by mouth daily. 90 Tablet 1 06/18/20 21 Active benazepriL (LOTENSIN) 10 mg Oral Tablet Take 10 mg by mouth daily. 12/14/19 22 Active hydroCHLOROthiaz lovely (HYDRODIURIL) 25 mg Oral Tablet Take 25 mg by mouth daily. 12/14/19 22 Active albuterol (PROVENTIL HFA;VENTOLIN HFA) 90 mcg/actuation Inhl HFA Aerosol Inhaler INHALE 2 PUFFS INTO THE LUNGS EVERY 6 HOURS NEEDED FOR SHORTNESS OF BREATH OR WHEEZING. 02/21/20 22 Active dapagliflozin propanediol (FARXIGA) 10 mg Oral TabletIndication s:heart failure associated with type 2 diabetes mellitus Take 10 mg by mouth daily. Indications: heart failure associated with type 2 diabetes mellitus Active fUROsemide (LASIX) 40 mg Oral Tablet Take 60 mg by mouth daily. 03/31/20 Active BREO ELLIPTA 100-25 mcg/dose Inhl Disk with Device Inhale 1 Puff into the lungs daily. 03/17/20 Active acetaminophen (TYLENOL) 500 mg Oral Tablet Take by mouth every 4 hours as needed for Pain. Rapi release Active vitamin E acetate (VITAMIN E ORAL) Take 1,000 mg by mouth daily. Active Lactobacillus acidophilus (PROBIOTIC ORAL) Take by mouth daily. Active multivit-mins no.63/iron/folic (M-VIT ORAL) Take by mouth daily. Active fUROsemide (LASIX) 20 mg Oral Tablet Take 40 mg by mouth daily. 12/15/19 025 Discontinu ed(DELETE- Therapy completed) benazepril-hydro chlorthiazide (LOTENSIN HCT) 20-25 mg Oral Tablet Take 1 Tablet by mouth daily. 01/10/20 Discontinu ed(DELETE- Stopped by provider) Zwudm-2-DRK-EPA- Fish Oil 1,000 mg (120 mg-180 mg) Oral Capsule Take by mouth. 05/05 08/04 025 Discontinu ed(DELETE- Therapy completed) predniSONE (DELTASONE) 10 mg Oral TabletIndication s:Cervical spondylosis 20 mg x 3 days, 10 mg x 3 days, 5 mg x 3 days 11 Tablet 01/21/20 24 025 Discontinu ed(DELETE- Therapy completed) methylPREDNISolo ne (MEDROL DOSPACK) 4 mg Oral Tablets, Dose PackIndications: Left hand pain,Injury of left ulnar nerve at hand level, initial encounter Follow package directions 21 Tablet 07/22/20 24 025 Discontinu ed(DELETE- Therapy completed) Active Problems Problem Noted Date Diagnosed Date Recurrent epigastric hernia 04/13/2025 Cubital tunnel syndrome on left 09/27/2024 Abnormal EKG 02/17/2024 Candidal vulvovaginitis 02/17/2024 Chest pain 02/17/2024 Daytime somnolence 02/17/2024 Dizziness 02/17/2024 Dyspnea 02/17/2024 Elevated right ventricular end-diastolic pressur e 02/17/2024 Fatigue 02/17/2024 Right low back pain 02/17/2024 Carpal tunnel syndrome of left wrist 12/04/2023 Incisional hernia with obstruction but no gangre ne 12/18/2021 Overview (12/18/2021): Added automatically from request for surgery [id number] Pacemaker 11/14/2021 Overview (02/16/2024): Medtronic Single Chamber PPM implanted 11/14/[address] 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 Muller Atrial fibrillation HTN (hypertension) Mild mitral regurgitation Encounters Date Type Department Care Team Description 06/02/2025 12:54 PM EDT - 06/02/2025 11:59 PM EDT Hospital Encounter [facility] PRE-ADMIT TESTING [address] [facility] [place] [address] Preop testing (Primary Dx); Recurrent epigastric hernia Discharge Disposition: Home or Self Care 06/02/2025 Travel 05/16/2025 E-Consult [facility] [address] [facility] [address] [place] [address] Karina Muller MD 05/16/2025 Orders Only [facility] [address] [facility] [address] [place] [address] Karina Muller MD Vector Remote Device 05/15/2025 Orders Only [facility] Gen Surg [facility] [address] [facility] [address] [place] [address] Jazlyn Puga, Clerical Staff Recurrent epigastric hernia (Primary Dx) 04/13/2025 Telephone [facility] [address] [facility] [address] [place] [address] Jazlyn Puga, Clerical Staff Surgery 04/10/2025 1:30 PM EDT Office Visit [facility] S[facility] [address] [facility] [address] [place] [address] [facility] DomDO Recurrent epigastric hernia (Primary Dx) 03/08/2025 9:14 AM EDT - 03/08/2025 11:59 PM EDT Hospital Encounter [facility] [address] [place], [place] [id number] Encounter for interrogation of cardiac recorder Discharge Disposition: Home or Self Care from Last 3 Months Surgical History Surgery Date Site/Laterality Comments CATARACT EXTRACTION EXTRACAPSULAR W/ INTRAOCULAR LENS IMPLANTATION 08/09/[address] Henrik Edmonds CATARACT EXTRACTION EXTRACAPSULAR W/ INTRAOCULAR LENS IMPLANTATION 08/23/[address] Leidy Edmonds PACEMAKER INSERTION 11/14/2021 Medtronic single chamber PPM by Dr. Muller PACEMAKER IMPLANT 11/14/2021 N/A LEADLESS PACEMAKER IMPLANT-POTTERY STRIPER ONLY [46]; Surgeon: Karina Muller MD; Location: [facility] CARDIAC [facility]AGING; Service: Cardiac Medical devices from this [...] Mott MD; Location: [facility]; Service: Orthopedics CARDIAC SURGERY 2021 Pacemaker Medical History Medical History Date Comments Atrial [...] nausea a nd vomiting) after cochlear implant Cataract Allergy Family History Medical History Relation Name Comments Arthritis Mother Yamilet Barker Diabetes Mother Yamilet Barker Cancer Sister 1 Malathi Renjohnny Hearing Loss Sister 2 Saskia Dietz Heart Disease Sister 2 Saskia Mitchell Anesth Problems Neg Hx Relation Name Status Comments Mother Yamilet Barker Alive Sister 1 Malathi Renaker Alive Sister 2 Saskia Dietz Alive Social History Tobacco Use Types Packs/Day Years [...] Mass Index 33.33 06/02/2025 1:11 PM EDT Plan of Treatment Upcoming Encounters Date Type Department Care Team (Latest Contact Info) Description 06/16/2025 7:30 AM EST Hospital Encounter [facility] [address] [place] [address] Angelo Christina, [address] [facility] [address] [place] [address] 06/16/2025 7:30 AM EST Anesthesia Event [facility] [address] [place] [address] Record, Anaya Stanley, SENIOR HR BUSINESS PARTNER [address] [facility] [place] [address] 06/16/2025 7:30 AM EST - 06/16/2025 9:35 AM EST Surgery [facility] [address] [place] [address] Angelo Christina Dom, DO [address] [facility] [address] [place], [place] [id number] DAVINCI ROBOTIC VENTRAL/INCISIONAL HERNIA REPAIR 02/27/2026 11:00 AM EDT Office Visit [facility] [address] [facility] [address] [place] [address] 02/27/2026 11:30 AM EDT Office Visit [facility] [address] [facility] [address] [place] [address] Parris Stark, SENIOR HR BUSINESS PARTNER [address] [place], [place] [id number] Scheduled Procedures Name Priority Associated Diagnoses Date/Ti me DAVINCI ROBOTIC VENTRAL/INCISIONAL HERNIA REPAIR Recurrent epigastric hernia 06/16/2025 7:30 AM EST Health Maintenance Due Date Last Done Comments Wellness Exam Medicare 12/25/1953 Hepatitis C Screening 1970 Pneumococcal Vaccine 50+ (1 of 2 - PCV) 12/25/1971 Breast Cancer Screening 1992 Cologuard 1997 Colon Cancer Screening 1997 Colonoscopy 1997 FIT 1997 Sigmoidoscopy 1997 Virtual Colonography 1997 RSV or 60+ (1 - Ris k 50-74 years 1-dose series) 2002 Zoster (1 of 2) 2002 Bone Density Screening 2017 DTaP/TDaP/Td (2 - Td or Tdap) 01/24/2024 01/23/2014 Low Dose Lung Cancer Screening 02/23/2025 0 02/24/2024, 02/17/2023 COVID-19 Vaccine ( - 2024-2 6 season) 2025 08/13/2021, 10/23/2020, 09/25/2020 Influenza Vaccine (#1) 2025 Hepatitis B Vaccine Aged Out No longe r eligible based on patient's age to complete this topic Meningococcal B Vaccine Aged Out No l onger eligible based on patient's age to complete this topic Goals Goal Patient Goal Type Associated Problems Recent Progress Patient-Stated? Author Autogenera sergio Goal Care Plan Autogenerated Problem No Liss Riggs, Clerical Staff Medical Devices Implanted Type Area Universal Banker Device Identifier Shelf Expiration Date Model / Serial / Lot Lead Pcng [id number] Spc 52cm Cap Nov Surscn Impl Biplr Str Av - [id number] Implanted:Qty: 1 on 11/14/2021 by Karina Muller MD at [facility] Lead MEDTRONIC:JACIEL Escobar SYS [id number] 07/25/2023 [id number] / [id number] / Pacemaker Briar Xt Sr Mri Surscn Sgl-Chmbr 42.6x50.8x7.4mm - [id number] Implanted:Qty: 1 on 11/14/2021 by Karina Muller MD at [facility] Pacemaker MEDTRONIC:JACIEL Escobar SYS [id number] 12/28/2022 [id number] / [id number] / Cochlear Implant Right Ear Bilateral Knee Replacements Bilateral Intraocular Lenses Procedures Procedure Name Priority Date/Time Associated Diagnosis Comments CBC WITH DIFF Routine 06/02/2025 2:22 PM EDT Preop testing Recurrent epigastric hernia VT REM INTERROG PM/LDLS PM <90 D PHYS/QHP Routine 05/16/2025 Vector Remote Device BASIC METABOLIC PANEL Routine 03/08/2025 9:14 AM EDT Encounter for interrogation of cardiac recorder CT LUNG CANCER SCREENING LOW DOSE Routine 02/24/2024 2:45 PM EDT Nicotine dependence, cigarettes, in remission from Last 3 Months or Most Recently Relevant to Health Maintenance Results * (ABNORMAL) CBC WITH DIFF (06/02/2025 2:22 PM EDT) [facility] WBC 7.5 3.7 - 10.3 x10(3)/mcL 06/02/2025 [...] 3:20 PM EDT [facility] [place] Percent 9.9 % 06/02/2025 3:20 PM EDT [facility] Eos Percent 2.9 % 06/02/2025 3:20 PM EDT [facility] Baso Percent 0.7 % 06/02/2025 3:20 PM EDT [facility] Neut # 4.7 1.6 - 6.1 x10(3)/[facility] 06/02/2025 3:20 PM EDT [facility] Comment:Neutrophils equals s egs plus bands IMMGRAN# 0.0 0.0 - 0.1 x10(3)/[facility] 06/02/2025 3:20 PM EDT [facility] Comment:Automated count of m etamyelocytes, myelocytes and promyelocytes. An absolute IG <0.1 is reported as 0.0. Lymph # 1.8 1.2 - 3.9 x10(3)/[facility] 06/02/2025 3:20 PM EDT [facility] [place] # 0.7 0.3 - 0.9 x10(3)/[facility] 06/02/2025 3:20 PM EDT [facility] Eos# 0.2 0.0 - 0.5 x10(3)/[facility] 06/02/2025 3:20 PM EDT [facility] Baso # 0.1 0.0 - 0.1 x10(3)/[facility] 06/02/2025 3:20 PM EDT [facility] Blood VENOUS BLOOD / Unknown Venipuncture / Unknown 06/02/2025 2:22 PM EDT 06/02/2025 3:04 PM EDT Anaya Palomino SENIOR HR BUSINESS PARTNER HEMATOLOGY ORDERABLES Final Result Performing Organization Address [facility] Co de Phone Number [facility] [address], [address] [place] [phone] * VECTOR REMOTE DEVICE (05/16/2025) 05/16/2025 Narrative [facility] - 05/16/2025 No episodes. Patient on AC. Mode: VVIR. COMBINED RAIL OPERATOR: 100%. Normal device function. Karina Muller MD [facility] CARDIAC CATH ORDERABLES F inal Result Performing Organization Address City/[facility]/ZIP Co de Phone Number [facility] [address] [place] [address] * (ABNORMAL) BASIC METABOLIC PANEL (03/08/2025 9:14 AM EDT) Sodium 139 136 - 145 mmol/L 03/08/2025 5:21 PM EDT [facility] Potassium 4.0 3.5 - 5.0 mmol/L 03/08/2025 5:21 PM EDT [facility] Chloride 100 98 - 107 mmol/L 03/08/2025 5:21 PM EDT [facility] Total CO2 27 22 - 29 mmol/L 03/08/2025 5:21 PM EDT [facility] Anion Gap 12 7 - 16 mmol/L 03/08/2025 5:21 PM EDT [facility] Calcium 9.8 8.8 - 10.4 mg/dL 03/08/2025 5:21 PM EDT [facility] Glucose Lvl 104(H) 70 - 99 mg/dL 03/08/2025 5:21 PM EDT [facility] BUN 22 8 - 23 mg/dL 03/08/2025 5:21 PM EDT [facility] Creatinine 0.63 0.51 - 1.30 mg/dL 03/08/2025 5:21 PM EDT [facility] eGFR (CKD-EPIcr 2020) 94 >=60 mL/min/1.7 3 m2 03/08/2025 5:21 PM EDT [facility] Comment:Estimated GFR was ca lculated using the CKD-EPIcr (2020) equation refit without race. The equation is recommended by the National Kidney Foundation - [place] Society of Nephrology Task Force. Blood VENOUS BLOOD / Unknown Venipuncture / Unknown 03/08/2025 9:14 AM EDT 03/08/2025 9:14 AM EDT Parris Stark SENIOR HR BUSINESS PARTNER CHEMISTRY ORDERABLES Final Result [facility] [address] [facility] , [place] [address] * CT LUNG CANCER SCREENING [...] contact the office of the ordering clinician. [email or web address] Narrative 02/24/2024 3:[address] LUNG CANCER SCREENING LOW DOSE 02/24/2024 2:45 PM CLINICAL HISTORY: Asymptomatic patient meeting NCCN high risk criteria for lung screening. F17.211-Nicotine dependence, cigarettes, in pdhdetikn-QXG-53-CM. COMPARISON: 02/17/2023 PROCEDURE COMMENTS: Noncontrast, low-dose, multidetector CT chest per department protocol. Interactive 3-D postprocessing done by the reviewing physician on a [employer] workstation, using Maximum intensity projections (MIPS) and ITT EXIM LUNG CAD for improved lesion detection. Moreno images archived to PACS. Dose 1 : CT DLP Total : 63.5 mGycm DLP Spiral Max : 63.5 mGycm Maximum CTDI Vol : 1.7 mGy SSDE : 2.108 mGy SSDE Diameter : 29.8 cm SSDE Source : [place] FINDINGS: No suspicious pulmonary nodule. 3 mm [...] risk criteria forlung screening. F17.211-Nicotine dependence, cigarettes, btlvsosrbef-WDO-43-CM. COMPARISON: 02/17/2023 PROCEDURE COMMENTS: Noncontrast, low-dose, multidetector CT chest perdepartment protocol. Interactive 3-D postprocessing done by the reviewing physicianon a ITT EXIM workstation, using Maximum intensity projections (MIPS) and SYNGOLUNG CAD for improved lesion detection. Moreno images archived to PACS. Dose 1 : CT DLP Total : 63.5 mGycm DLP Spiral Max : 63.5 mGycm Maximum CTDI Vol : 1.7 mGy SSDE : 2.108 mGy SSDE Diameter : 29.8 cm SSDE Source : [place] FINDINGS: No suspicious pulmonary nodule. 3 mm [...] please contactthe office of the ordering clinician. [email or web address] Trevor Valle MD IM CT ORDERABLES Final Resul t from Last 3 Months or Most Recently Relevant to Health Maintenance Additional Health Concerns Active Problems Noted Date Diagnosed Date Autogenerated Problem 04/14/2025 Insurance MEDICARE ADVANTAGE MR MEDICARE ADVANTAGE MR MEDICARE ADVANTAGE MR ANTHEM MEDICARE ADVANTAGE MR Care Teams Administrative Hearing Officer Relationship Specialty Start Date End Date Camille Pinon [address] [place] [address] [address] [place] [address] PCP - General Family Medicine 08/03/1977
--- OUTSIDE RECORDS SUMMARY | 2025-06-07 07:25 | XMS_ITS | Clinical Summary ---
Author Organization [facility] Address [address] [place] [address] Care Team Providers Care Tin Can Laborer Name Role Phone Turner Pinon MD Primary Care Provider [phone] Allergies Active Allergy Reactions Criticality Noted Date [...] (2 - Td or Tdap) 01/24/2024 01/23/2014 [id number] Vaccine ( season) 2025 08/13/2021, 10/23/2020, 09/25/2020 UKY-Influenza Vaccine (#1) 2025 [...] this topic Insurance ANTHEM MEDICARE Care Teams Tin Can Laborer Relationship Specialty Start Date End Date Turner Pinon MD [address] [place] [phone] PCP - General 12/14/20
--- OUTSIDE RECORDS SUMMARY | 2025-06-07 07:25 | XMS_ITS | Encounter Summary ---
Author Organization [facility] [place] [address] Care Team Providers Care Medical Office Rep Name Role Phone Camille Pinon Primary Care Provider [phone] Encounter Details Date Type Department Care Team (Late st Contact Info) Description 11/15/2021 Orders Only [facility] [address] [facility] [address] [place] [address] Karina Muller MD [address] [place], [place] [id number] Social History Tobacco Use Types Packs/Day Years [...] Author No 11/15/2021 10:48 AM EDT Maribel Predomo RN documented in this encounter Plan of Treatment Upcoming Encounters Date Type Department Care Team (Latest Contact Info) Description 06/16/2025 7:30 AM EST Hospital Encounter [facility] [address] [place] [address] Angelo Christina, DO [address] [facility] [address] [place] [address] 06/16/2025 7:30 AM EST Anesthesia Event [facility] [address] [place] [address] Anaya Palomino, TAR BOILER [address] [place] [address] 06/16/2025 7:30 AM EST - 06/16/2025 9:35 AM EST Surgery [facility] [address] [place] [address] Angelo Christina, DO [address] [facility] [address] [place] [address] DAVINCI ROBOTIC VENTRAL/INCISIONAL HERNIA REPAIR 02/27/2026 11:00 AM EDT Office Visit [facility] [address] [place] [address] 02/27/2026 11:30 AM EDT Office Visit [facility] [address] [place] [address] [place] [address] Parris Stark, TAR BOILER [address] [place] [address] Scheduled Procedures Name Priority Associated Diagnoses Date/Ti me DAVINCI ROBOTIC VENTRAL/INCISIONAL HERNIA REPAIR Recurrent epigastric hernia 06/16/2025 7:30 AM EST documented as of this encounter Procedures Procedure Name Priority Date/Time Associated Diagnosis Comments PACEART REPORT Routine 11/15/2021 9:34 AM EDT documented in this encounter Results * PACEART REPORT (11/15/2021 9:34 AM EDT) 11/15/2021 9:34 AM EDT Narrative [facility] - 11/15/2021 10:43 AM EDT - [facility] remote report from [facility]. - No Medtronic rep notes recorded. - Report exported to [employer]. Elia RN/CDS. us Karina Muller MD [facility] CARDIAC CATH ORDERABLES F inal Result [facility] [address] [place] [address] documented in this encounter Visit Diagnoses Not on filedocumented in this encounter Additional Health Concerns Assessment Noted Time A fall risk assessment has been complete d for the patient 03/20/2021 1:07 PM EDT documented as of this encounter Care Teams Medical Office Rep Relationship Specialty Start Date End Date Camille Pinon [address] [place] [address] [address] [place] [phone] PCP - General Family Medicine 08/03/1977 documented as of this encounter
--- OUTSIDE RECORDS SUMMARY | 2025-06-07 07:25 | XMS_ITS | Encounter Summary ---
Author Organization [facility] Address [address] [place] [id number] Care Team Providers Care Integration Architect Name Role Phone Turner Pinon MD Primary Care Provider [phone] Reason for Referral * Consultation (Routine) - Closed Specialty Diagnoses / Procedures Referred By Contac t Referred To Contact Audiology Diagnoses Cochlear implant in place Saúl Salomon MD [address] [place] [address] Phone: tel: fax: Referral ID Status Reason Start Date Expiration Date V isits Requested Visits Authorized [id number] Closed Specialty Services Required 12/29/2023 06/29/2025 1 1 * Consultation (Routine) - Closed Specialty Diagnoses / Procedures Referred By Christa phan Referred To Contact Otolaryngology Diagnoses Cochlear implant in place Saúl Salomon MD [address] [place] [address] Phone: tel: fax: Referral ID Status Reason Start Date Expiration Date V isits Requested Visits Authorized [id number] Closed Specialty Services Required 12/29/2023 06/29/2025 1 1 Encounter Details Date Type Department Care Team ([facility] st Contact Info) Description 12/29/2023 [facility] [address] [place] [address] Saúl Salomon MD [address] [place] [address] (Primary [...] Primary documented in this encounter Care Teams Integration Architect Relationship Specialty Start Date End Date Turner Pinon MD [address] [place] [address] PCP - General 12/14/20 documented as of this encounter
--- OUTSIDE RECORDS SUMMARY | 2025-06-07 07:25 | XMS_ITS | Encounter Summary ---
Author Organization [place] [address] Care Team Providers Care Team Assistant Name Role Phone Camille Pinon Primary Care Provider [phone] Encounter Details Date Type Department Care Team (Late st Contact Info) Description 05/15/2025 Orders Only SEP Gen Surg [facility] [address] [facility] [address] [place] [address] Jazlyn Puga, Clerical Staff Recurrent epigastric hernia (Primary Dx) Social History [...] PERIOP [address] [place] [place] [address] Angelo Christina, [address] [facility] [address] [place] [address] 06/16/2025 7:30 AM EST Anesthesia Event [facility] [address] [place] [place] [address] Record, Anaya Stanley, TREE EXPERT [address] [place] [address] 06/16/2025 7:30 AM EST - 06/16/2025 9:35 AM EST Surgery [facility] [address] [place] [place] [address] Angelo Christina, [address] [facility] [address] [place] [address] KENNYI ROBOTIC VENTRAL/INCISIONAL HERNIA REPAIR 02/27/2026 11:00 AM EDT Office Visit [facility] [address] [facility] [address] [place] [address] 02/27/2026 11:30 AM EDT Office Visit [facility] [address] [facility] [address] [place] [address] Parris Stark, NETO [address] [place] [address] Scheduled Procedures Name Priority Associated Diagnoses Date/Ti nj JARED ROBOTIC VENTRAL/INCISIONAL HERNIA REPAIR Recurrent epigastric hernia 06/16/2025 7:30 AM EST documented as of this encounter Goals Goal Patient Goal Type Associated Problems Recent Progress Patient-Stated? Author Autogenera sergio Goal Care Plan Autogenerated Problem No Liss Riggs, Clerical Staff documented as of this encounter Visit Diagnoses Diagnosis Recurrent epigastric hernia- Primary Recurrent epigastric hernia- Primary Recurrent epigastric hernia documented in this encounter Orders E-Consult Count Last Ordered Date First Orde red Date AMB E-CONSULT TO CARDIOLOGY 1 05/15/2025 documented in this encounter Additional Health Concerns Active Problems Noted Date Diagnosed Date Autogenerated Problem 04/14/2025 Assessment Noted Time A fall risk assessment has been complete d for the patient 02/17/2024 11:07 AM EDT documented as of this encounter Care Teams Team Assistant Relationship Specialty Start Date End Date Camille Pinon [facility] [address] [place] [address] PCP - General Family Medicine 08/03/1977 documented as of this encounter
--- OUTSIDE RECORDS SUMMARY | 2025-06-07 07:25 | XMS_ITS | Clinical Summary ---
Author Organization [facility] Address [address] [place] [address] Care Team Providers Care Mural Painter Name Role Phone Unavailable Primary Care Provider Unavailabl e Social History Tobacco Use Types Packs/Day Years Used Date Smoking Tobacco: Never Assessed Abuse Screen Answer Date Recorded Unsafe at Home or Work/School Not on file Feels Threatened by Someone? Not on file 05/2023 Does Anyone Keep You from Co ntacting Others or Doint Things Outside the Home? Not on file 05/12/2023 Physical Sign of Abuse Present Not on file 1 Housing Stability Answer Date Recorded Current Living Arrangements Not on file 05/03 Potentially Unsafe Housing Conditions Not on mil e 05/12/2023 Family and Community Support Answer Vince e Recorded Help with Day-to-Day Activities Not on file 05/12/2023 Lonely or Isolated Not on file 05/12/2023 Employment Answer Date Recorded Do you want help finding or keeping work or a cedric b? Not on file 05/12/2023 Disabilities Answer Date Recorded Concentrating, Remembering, or Making Decisions Difficulty Not on file 05/12/2023 Doing Errands Independently Difficulty Not on fi le 05/12/2023 Education Answer Date Recorded Help with school or training? Not on file Preferred Language Not on file 05/12/2023 Comments Unknown Sex and Gender Information Value Date Recorded Sex Assigned at Not on file Legal Sex Female 1:42 PM EDT Gender Identity Not on file Sexual Orientation Not on file Plan of Treatment Health Maintenance Due Date Last Done Comments ANNUAL PHYSICAL 1950 DXA SCAN 1950 HEPATITIS C SCREENING 1952 TDAP/TD VACCINES (1 - Tdap) 12/25/1971 MAMMOGRAM 1992 COLOGUARD 1997 COLON CANCER SCREENING 5 YEAR SIGMOIDOSCOPY 1997 COLONOSCOPY 1997 COLORECTAL CANCER SCREENING 1997 CT COLONOGRAPHY 1997 FECAL OCCULT BLOOD TEST 1997 FIT Testing (1 year) 1997 Pneumococcal Vaccine 50+ (1 of 1 - PCV) 2002 ZOSTER VACCINE (1 of 2) 2002 INFLUENZA VACCINE 03/03/2025 COVID-19 Vaccine ( - season) 2025
--- OUTSIDE RECORDS SUMMARY | 2025-06-07 07:25 | XMS_ITS | Encounter Summary ---
Author Organization [place] [address] Care Team Providers Care Fan Runner Name Role Phone Camille Pinon Primary Care Provider [phone] Encounter Details Date Type Department Care Team (Late st Contact Info) Description 09/26/2008 Orders Only [facility] [place] [facility] [address] [place] [address] Turner Alcaraz MD Social History [...] Encounter [facility] [address] [place] [place] [address] Angelo Christina, DO [address] [facility] [address] [place] [address] 06/16/2025 7:30 AM EST Anesthesia Event [facility] [address] [place] [address] Record, Anaya Stanley, STAIN WIPER [address] [place] [address] 06/16/2025 7:30 AM EST - 06/16/2025 9:35 AM EST Surgery [facility] [address] [place] [address] Angelo Christina, DO [address] [place] [address] DAVINCI ROBOTIC VENTRAL/INCISIONAL HERNIA REPAIR 02/27/2026 11:00 AM EDT Office Visit [facility] [address] [facility] [address] [place] [address] 02/27/2026 11:30 AM EDT Office Visit [facility] [address] [facility] [address] [place] [address] Parris Stark APRN [address] [place] [address] Scheduled Procedures Name Priority Associated [...] a practice prior to that practice using [facility] for Medical Records. Performing Provider: Turner Alcaraz M.D. us Turner Alcaraz MD IMG ECHO ORDERABLES Final Re sult documented in this encounter Visit Diagnoses Not on filedocumented in this encounter Care Teams Fan Runner Relationship Specialty Start Date End Date Camille Pinon [address] [facility] [address] [facility] [place] [id number] PCP - General Family Medicine 08/03/1977 documented as of this encounter
--- OUTSIDE RECORDS SUMMARY | 2025-06-07 07:25 | XMS_ITS | Encounter Summary ---
Author Organization [place] [address] Care Team Providers Care Tester Operator Helper Name Role Phone Camille Pinon Primary Care Provider [phone] Reason for Visit * Reason Onset Date Comments Surgery 04/13/2025 Encounter Details Date Type Department Care Team (Late st Contact Info) Description 04/13/2025 Telephone [facility] Gen Surg [facility] [address] [facility] [address] [place] [address] Jazlyn Puga, Clerical Staff Surgery Social History Tobacco Use Types Packs/Day Years [...] Maribel Leahy RN documented in this encounter Miscellaneous Notes * Telephone Encounter - Jazlyn Puga, Clerical Staff - 05/23/2025 12:27 PM EDT Images from the original note were not included. * Telephone Encounter - Jazlyn Puga Clerical Staff - 04/13/2025 1:52 PM EDT Surgery Information Date: 06/16/25 Arrival time: 6am Approximate surgery time: 730am Location: [place] [address] Pause Luan 3 days prior to surgery. No food after midnight. You may have certain clear liquids up to 2 hours prior to arrival time; Water or Gatorade/ Powerade, Black coffee, or tea (no cream or sugar) Telegraphic Service Dispatcher It is important to have a Telegraphic Service Dispatcher, someone who is 18 years or older, to accompany you and remain in the facility for the duration of your surgery. This person should be available for the SurgeryTeam to communicate with before, during and after your surgery. Because you are receiving anesthesia, someone is needed to drive you home and remain with you for at least 24 hours after surgery to make sure you are safe during that time. Pre testing department through the hospital will call and go over medications, and medical history. If you have any questions or concerns, please send me a message through [employer] or call the office at [phone]. Thanks! Inna * Telephone Encounter - Jazlyn Puga, Clerical Staff - 04/13/2025 1:46 PM EDT Scheduling Instructions Needs to hold xarelto prior to surgery ADT-Related Order Information Order Questions Question Answer Comment Admission Class Outpatient Clearance Needed Prior to Surgery Cardiac ERAS No Prep None Length of time needed if different from standard: standard Positioning Supine Stoma marking/ Ostomy teaching No Pre-op appointment with: None Surgery: [id number] repair; laparoscopic Robotic recurrent epigastric hernia repair with phasix mesh, possible open Anesthesia: General Location: [facility] Main OR Schedule procedure within: Choice Patient wants June -No latex allergy -Xarelto -No weight loss meds documented in this encounter Plan of Treatment Upcoming Encounters Date Type Department Care Team (Latest Contact Info) Description 06/16/2025 7:30 AM EST Hospital Encounter [facility] [address] [place] [address] Angelo Christina, [address] [place] [address] 06/16/2025 7:30 AM EST Anesthesia Event [facility] [address] [place] [address] Georgette, Anaya Stanley, TEAM PSYCHOLOGIST [address] [place] [address] 06/16/2025 7:30 AM EST - 06/16/2025 9:35 AM EST Surgery [facility] [address] [place] [address] Angelo Christina, [address] [place] [address] DAVINCI ROBOTIC VENTRAL/INCISIONAL HERNIA REPAIR 02/27/2026 11:00 AM EDT Office Visit [facility] [address] [facility] [address] [place] [address] 02/27/2026 11:30 AM EDT Office Visit [facility] [address] [facility] [address] [place] [address] Parris Stark APRN [address] [place] [address] Scheduled Orders Name Type Priority Associated Diagnoses Orde r Schedule SURGICAL/PROCEDURE CASE REQUEST Procedures Routine Recurrent epigastric hernia Ordered: 04/13/2025 Scheduled Procedures Name Priority Associated Diagnoses Date/Ti ky DAVINCI ROBOTIC VENTRAL/INCISIONAL HERNIA REPAIR Recurrent epigastric [...] red Date AMB E-CONSULT TO CARDIOLOGY 1 04/13/2025 documented in this encounter Additional Health Concerns Active Problems Noted Date Diagnosed Date Autogenerated Problem 04/14/2025 Assessment Noted Time A fall risk assessment has been complete d for the patient 02/17/2024 11:07 AM EDT documented as of this encounter Care Teams Tester Operator Helper Relationship Specialty Start Date End Date Camille Pinon [address] [facility] [address] [place] [id number] PCP - General Family Medicine 08/03/1977 documented as of this encounter
== END 2025-06-05 23:59 ==
LOC: LAB.DROPOF 06-07 07:23
PROVIDERS: PCP Nurse Practitioner; Visit Provider Nurse Practitioner
DX: E78.5 Hyperlipidemia, unspecified (principal); Z11.59 Encounter for screening for other viral diseases; R73.01 Impaired fasting glucose; I10 Essential (primary) hypertension
CPT/HCPCS: 80053; 80061; 83036; 86803; 87389